=== PATIENT | male | born 1980 | race Caucasian/White ===

== ENCOUNTER 2016-06-27 05:09 | Emergency (ER) | payer MEDICAID, OTHER ==
[~2016-06-27] VITALS: Ht 172.7 cm; Wt 136.4 kg
[~2016-06-27 05:09] MED LIST: ARIP15TA3 PO; GLIP5 PO; LISI-660 PO; METF500T4 PO; METO50 PO; OMEP20 PO; SIMV-259 PO
[2016-06-27 05:37] LABS: BASOPHILS % (AUTO) 0.5 % (0.0-2.0); EOSINOPHILS % (AUTO) 2.6 % (1.0-6.0); HEMATOCRIT 48.1 % (41-53); HEMOGLOBIN 15.7 g/dL (13.5-17.5); LYMPHOCYTES # (AUTO) 3.2 K/uL (1.0-4.8); LYMPHOCYTES % (AUTO) 19.5 % (22.0-44.0); MEAN CORPUSCULAR HEMOGLOBIN 30.4 pg (26.0-34.0); MEAN CORPUSCULAR HGB CONC 32.6 G/dL (31.0-37.0); MEAN CORPUSCULAR VOLUME 93 fL (80-100); MONOCYTES # (AUTO) 0.7 K/uL (0.1-1.0); MONOCYTES % (AUTO) 4.5 % (2.0-9.0); NEUTROPHILS # (AUTO) 11.9 K/uL (1.8-7.7); NEUTROPHILS % (AUTO) 72.9 % (40.0-70.0); PLATELET COUNT (AUTO) 237 K/uL (150-450); RED BLOOD CELL COUNT(AUTO) 5.15 MIL/uL (4.50-5.90); RED CELL DISTRIBUTION WIDTH 14.3 % (11.5-14.5); WHITE BLOOD COUNT (AUTO) 16.3 K/uL (4.5-11.0)
[2016-06-27 05:49] LABS: ANION GAP 8 mmol/L (8-16); CARBON DIOXIDE 31 mmol/L (22-29); CHLORIDE 101 mmol/L (98-107); CREATININE 0.82 mg/dL (0.60-1.30); GLOMERULAR FILTR. RATE CALC > 60 mL/min (>60); POTASSIUM 4.2 mmol/L (3.5-5.1); SODIUM SERUM 140 mmol/L (136-145); UREA NITROGEN, BLOOD 9 mg/dL (7-18)
[2016-06-27 05:55] LABS: ALANINE AMINOTRANSFERASE 35 U/L (12-78); ALBUMIN 3.6 g/dL (3.4-5.0); ASPARTATE AMINOTRANSFERASE 21 U/L (15-37); BILIRUBIN,TOTAL 0.7 mg/dL (0.1-1.0); TOTAL PROTEIN, SERUM 8.3 g/dL (6.4-8.2)
[2016-06-27] MEDS ORDERED: LORazepam 2 MG TABLET PO ONE (08:45)
[2016-06-27] MEDS ORDERED: HALOPERIDOL 5 MG TABLET PO ONE (08:45)
[2016-06-27 09:43] VITALS: BP 137/92
== END 2016-06-27 09:43 | disposition home or self-care (01) ==
LOC: EMS 05:11
DX: F20.0 Paranoid schizophrenia (principal); E11.9 Type 2 diabetes mellitus without complications; E78.00 Pure hypercholesterolemia, unspecified; I10 Essential (primary) hypertension; F17.210 Nicotine dependence, cigarettes, uncomplicated; Z88.0 Allergy status to penicillin
CPT/HCPCS: 82962; 99284

== ENCOUNTER 2017-08-05 08:13 | Inpatient (IN) | payer MEDICAID, OTHER ==
[~2017-08-05] VITALS: Ht 177.8 cm; Wt 133.5 kg
[~2017-08-05 08:13] MED LIST changes: +ARIP15TA2 PO; -ARIP15TA3 PO; -METF500T4 PO; +METF500T6 PO
[2017-08-05 08:37] LABS: GLUCOSE,POINT OF CARE 128 MG/DL (70-110)
[2017-08-05 09:03] LABS: EOSINOPHILS % (AUTO) 5.6 % (1.0-6.0); HEMATOCRIT 44.2 % (41-53); HEMOGLOBIN 15.5 g/dL (13.5-17.5); LYMPHOCYTES # (AUTO) 2.8 K/uL (1.0-4.8); LYMPHOCYTES % (AUTO) 26.7 % (22.0-44.0); MEAN CORPUSCULAR HEMOGLOBIN 32.5 pg (26.0-34.0); MEAN CORPUSCULAR VOLUME 93 fL (80-100); MONOCYTES # (AUTO) 0.6 K/uL (0.1-1.0); MONOCYTES % (AUTO) 5.7 % (2.0-9.0); NEUTROPHILS # (AUTO) 6.4 K/uL (1.8-7.7); PLATELET COUNT (AUTO) 203 K/uL (150-450); RED BLOOD CELL COUNT(AUTO) 4.75 MIL/uL (4.50-5.90); RED CELL DISTRIBUTION WIDTH 14.1 % (11.5-14.5)
[2017-08-05 09:04] LABS: AMPHET/METH SCREEN,URINE NEGATIVE (NEGATIVE); BARBITURATE SCREEN, URINE NEGATIVE (NEGATIVE); BENZODIAZEPINES SCREEN,URINE NEGATIVE (NEGATIVE); CANNABINOID SCREEN,URINE NEGATIVE (NEGATIVE); COCAINE SCREEN,URINE NEGATIVE (NEGATIVE); METHADONE SCREEN, URINE NEGATIVE (NEGATIVE); OPIATE SCREEN,URINE NEGATIVE (NEGATIVE)
[2017-08-05 09:10] LABS: PHENCYCLIDINE SCREEN,URINE NEGATIVE (NEGATIVE)
[2017-08-05 09:29] LABS: ANION GAP 6 mmol/L (8-16); CALCIUM, TOTAL 8.7 mg/dL (8.8-10.5); CARBON DIOXIDE 28 mmol/L (22-29); CHLORIDE 102 mmol/L (98-107); CREATININE 0.61 mg/dL (0.60-1.30); GLOMERULAR FILTR. RATE CALC > 60 mL/min (>60); GLUCOSE,RANDOM 120 mg/dL (70-110); POTASSIUM 4.2 mmol/L (3.5-5.1); SODIUM SERUM 136 mmol/L (136-145); UREA NITROGEN, BLOOD 7 mg/dL (7-18)
[2017-08-05] MEDS ORDERED: HALOPERIDOL 5 MG TABLET PO PRN (09:30)
[2017-08-05 09:34] LABS: ALANINE AMINOTRANSFERASE 28 U/L (12-78); ALBUMIN 3.2 g/dL (3.4-5.0); ALKALINE PHOSPHATASE 97 U/L (46-116); ASPARTATE AMINOTRANSFERASE 21 U/L (15-37); BILIRUBIN,TOTAL 0.2 mg/dL (0.1-1.0); TOTAL PROTEIN, SERUM 7.5 g/dL (6.4-8.2)
[2017-08-05 10:11] LABS: CHOLESTEROL 153 mg/dL (131-200); FREE T4 (FREE THYROXINE) 0.78 ng/dL (0.76-1.46); HDL CHOLESTEROL 38 mg/dL (40-60); LDL CHOL (CALC.) 93 mg/dL (0-130); THYROID STIMULATING HORMONE 2.63 uIU/mL (0.36-3.74); TRIGLYCERIDES 112 mg/dL (15-150)
[2017-08-05 16:29] VITALS: BP 160/96
[2017-08-05] MEDS ORDERED: PNEUMOCOCCAL VACCINE POLYVALENT 0.5 ML VIAL [PPSV23] IM ONE (16:45)
[2017-08-05] MEDS: LORazepam 2 MG TABLET PO PRN (16:58)
[2017-08-05] MEDS ORDERED: GLUCAGON,HUMAN RECOMBINANT 1 MG VIAL IM PRN (18:00)
[2017-08-05] MEDS: ARIPiprazole 15 MG TABLET PO SCH (20:48)
[2017-08-05] MEDS: SIMVASTATIN 10 MG TABLET PO SCH (20:48)
[2017-08-05] MEDS: ZOLPIDEM TARTRATE 10 MG TABLET PO PRN (21:05)
[2017-08-05 23:57] LABS: GLUCOMETER DEV NAME(LOC) BV2S 2; GLUCOSE,POINT OF CARE 111 MG/DL (70-110)
[2017-08-06 05:27] VITALS: BP 120/76
[2017-08-06] MEDS: GlipiZIDE 5 MG TABLET PO SCH (06:57)
[2017-08-06] MEDS: INSULIN LISPRO 100 UNITS/ML SQ PRN ×2 (07:06→16:59)
[2017-08-06] MEDS: MetFORMIN HCL 500 MG TABLET PO SCH ×2 (07:11→16:57)
[2017-08-06 07:53] LABS: GLUCOMETER DEV NAME(LOC) BV2S 2; GLUCOSE,POINT OF CARE 143 MG/DL (70-110)
[2017-08-06] MEDS: LISINOPRIL 5 MG TABLET PO SCH (08:15)
[2017-08-06] MEDS: METOPROLOL TARTRATE 25 MG TABLET PO SCH (08:15)
[2017-08-06] MEDS: OMEPRAZOLE 20 MG CAPSULE PO SCH (08:15)
[2017-08-06 08:20] VITALS: BP 103/77
[2017-08-06 10:57] LABS: GLUCOMETER DEV NAME(LOC) BV2S 2; GLUCOSE,POINT OF CARE 115 MG/DL (70-110)
[2017-08-06 16:36] VITALS: BP 115/65
[2017-08-06 16:47] LABS: GLUCOMETER DEV NAME(LOC) BV2S 2; GLUCOSE,POINT OF CARE 143 MG/DL (70-110)
[2017-08-06] MEDS: SIMVASTATIN 10 MG TABLET PO SCH (20:04)
[2017-08-06] MEDS: ARIPiprazole 15 MG TABLET PO SCH (20:04)
[2017-08-07 04:00] VITALS: BP 122/92
[2017-08-07 06:13] LABS: GLUCOMETER DEV NAME(LOC) BV2S 2; GLUCOSE,POINT OF CARE 136 MG/DL (70-110)
[2017-08-07] MEDS: MetFORMIN HCL 500 MG TABLET PO SCH ×2 (06:48→17:05)
[2017-08-07] MEDS: GlipiZIDE 5 MG TABLET PO SCH (06:48)
[2017-08-07] MEDS: OMEPRAZOLE 20 MG CAPSULE PO SCH (08:56)
[2017-08-07] MEDS: METOPROLOL TARTRATE 25 MG TABLET PO SCH (08:56)
[2017-08-07] MEDS: LISINOPRIL 5 MG TABLET PO SCH (08:56)
[2017-08-07 09:41] VITALS: BP 111/70
[2017-08-07] MEDS: LORazepam 2 MG TABLET PO PRN (16:08)
[2017-08-07 16:14] VITALS: BP 118/87
[2017-08-07 16:28] LABS: GLUCOMETER DEV NAME(LOC) BV2S 2; GLUCOSE,POINT OF CARE 125 MG/DL (70-110)
[2017-08-07] MEDS: ARIPiprazole 15 MG TABLET PO SCH (21:02)
[2017-08-07] MEDS: SIMVASTATIN 10 MG TABLET PO SCH (21:02)
[2017-08-08 02:43] VITALS: BP 118/80
[2017-08-08] MEDS: LORazepam 2 MG TABLET PO PRN (02:43)
[2017-08-08] MEDS: ZOLPIDEM TARTRATE 10 MG TABLET PO PRN (02:43)
[2017-08-08 06:12] LABS: GLUCOMETER DEV NAME(LOC) BV2S 2; GLUCOSE,POINT OF CARE 130 MG/DL (70-110)
[2017-08-08] MEDS: MetFORMIN HCL 500 MG TABLET PO SCH ×2 (06:40→17:01)
[2017-08-08] MEDS: GlipiZIDE 5 MG TABLET PO SCH (06:40)
[2017-08-08 08:16] VITALS: BP 121/69
[2017-08-08] MEDS: LISINOPRIL 5 MG TABLET PO SCH (09:00)
[2017-08-08] MEDS: METOPROLOL TARTRATE 25 MG TABLET PO SCH (09:00)
[2017-08-08] MEDS: OMEPRAZOLE 20 MG CAPSULE PO SCH (09:00)
[2017-08-08 16:31] VITALS: BP 121/65
[2017-08-08] MEDS ORDERED: LISI-660 PO (16:54)
[2017-08-08] MEDS ORDERED: OMEP20 PO (16:54)
[2017-08-08] MEDS ORDERED: GLIP5 PO (16:54)
[2017-08-08] MEDS ORDERED: METO50 PO (16:54)
[2017-08-08] MEDS ORDERED: SIMV-259 PO (16:54)
[2017-08-08 17:07] LABS: GLUCOMETER DEV NAME(LOC) BV2S 2; GLUCOSE,POINT OF CARE 120 MG/DL (70-110)
== END 2017-08-08 17:45 | disposition home or self-care (01) | DRG 750 ==
LOC: EMS 08:15 → B2S 14:38
PROVIDERS: ADMIT Psychiatry & Neurology Psychiatry; ATTEND Psychiatry & Neurology Psychiatry
PROC: 3E0234Z Introduction of Serum, Toxoid and Vaccine into Muscle, Percutaneous Approach (ICD-10-PCS; principal; 2017-08-05)
DX: F25.9 Schizoaffective disorder, unspecified (principal); E11.9 Type 2 diabetes mellitus without complications; R45.851 Suicidal ideations; I10 Essential (primary) hypertension; F41.9 Anxiety disorder, unspecified; E78.00 Pure hypercholesterolemia, unspecified; E78.5 Hyperlipidemia, unspecified; F17.200 Nicotine dependence, unspecified, uncomplicated; Z23 Encounter for immunization
CPT/HCPCS: 83036; 84439; 84443; 90471; 99285; G0480

== ENCOUNTER 2017-08-30 09:49 | Inpatient (IN) | payer MEDICAID, OTHER ==
[~2017-08-30] VITALS: Ht 190.5 cm; Wt 134.0 kg
[2017-08-30 10:18] LABS: GLUCOSE,POINT OF CARE 174 MG/DL (70-110)
[2017-08-30] MEDS ORDERED: LORazepam 2 MG TABLET PO ONE (10:30)
[2017-08-30 10:44] LABS: EOSINOPHILS % (AUTO) 2.6 % (1.0-6.0); HEMOGLOBIN 15.6 g/dL (13.5-17.5); LYMPHOCYTES # (AUTO) 2.7 K/uL (1.0-4.8); MEAN CORPUSCULAR HGB CONC 34.7 G/dL (31.0-37.0); MEAN CORPUSCULAR VOLUME 92 fL (80-100); MONOCYTES # (AUTO) 0.8 K/uL (0.1-1.0); MONOCYTES % (AUTO) 5.5 % (2.0-9.0); NEUTROPHILS # (AUTO) 10.8 K/uL (1.8-7.7); NEUTROPHILS % (AUTO) 72.9 % (40.0-70.0); PLATELET COUNT (AUTO) 214 K/uL (150-450); RED BLOOD CELL COUNT(AUTO) 4.89 MIL/uL (4.50-5.90)
[2017-08-30 10:55] LABS: ANION GAP 7 mmol/L (8-16); CALCIUM, TOTAL 8.6 mg/dL (8.8-10.5); CARBON DIOXIDE 27 mmol/L (22-29); CHLORIDE 100 mmol/L (98-107); CREATININE 0.82 mg/dL (0.60-1.30); GLOMERULAR FILTR. RATE CALC > 60 mL/min (>60); GLUCOSE,RANDOM 183 mg/dL (70-110); POTASSIUM 3.9 mmol/L (3.5-5.1); SODIUM SERUM 134 mmol/L (136-145); UREA NITROGEN, BLOOD 12 mg/dL (7-18)
[2017-08-30 11:01] LABS: ALANINE AMINOTRANSFERASE 34 U/L (12-78); ALBUMIN 3.3 g/dL (3.4-5.0); ALKALINE PHOSPHATASE 119 U/L (46-116); ASPARTATE AMINOTRANSFERASE 25 U/L (15-37); BILIRUBIN,TOTAL 0.6 mg/dL (0.1-1.0)
[2017-08-30] MEDS ORDERED: LISINOPRIL 10 MG TABLET PO ONE (17:30)
[2017-08-30] MEDS ORDERED: METOPROLOL TARTRATE 50 MG TABLET PO ONE (17:30)
[2017-08-30] MEDS: HALOPERIDOL 5 MG TABLET PO PRN (18:20)
[2017-08-30] MEDS: LORazepam 2 MG TABLET PO PRN (18:20)
[2017-08-30] MEDS ORDERED: LORazepam 2 MG/ML VIAL IM ONE (20:45)
[2017-08-30] MEDS ORDERED: HALOPERIDOL LACTATE 5 MG/ML VIAL IM ONE (20:45)
[2017-08-30] MEDS ORDERED: DiphenhydrAMINE HCL 50 MG/ML VIAL IM ONE (20:45)
[2017-08-31 08:29] VITALS: BP 127/68
[2017-08-31 09:03] LABS: GLUCOMETER DEV NAME(LOC) BV3N5; GLUCOSE,POINT OF CARE 185 MG/DL (70-110)
[2017-08-31] MEDS: METOPROLOL TARTRATE 50 MG TABLET PO SCH (09:30)
[2017-08-31] MEDS: OMEPRAZOLE 20 MG CAPSULE PO SCH (10:02)
[2017-08-31] MEDS: LISINOPRIL 5 MG TABLET PO SCH (10:02)
[2017-08-31] MEDS ORDERED: -PHARMACY VACCINE NOTE- MISC ONE (10:45)
[2017-08-31 16:00] VITALS: BP 125/78
[2017-08-31 16:09] VITALS: BP 120/64
[2017-08-31] MEDS: MetFORMIN HCL 500 MG TABLET PO SCH (17:08)
[2017-08-31] MEDS: HALOPERIDOL 5 MG TABLET PO PRN (17:08)
[2017-08-31] MEDS: LORazepam 2 MG TABLET PO PRN (17:08)
[2017-08-31] MEDS ORDERED: ACETAMINOPHEN 325 MG TABLET PO PRN ×2 (17:15→20:30)
[2017-08-31 17:24] LABS: GLUCOMETER DEV NAME(LOC) BV3N5; GLUCOSE,POINT OF CARE 149 MG/DL (70-110)
[2017-08-31] MEDS: ZOLPIDEM TARTRATE 10 MG TABLET PO PRN (21:02)
[2017-08-31] MEDS: SIMVASTATIN 10 MG TABLET PO SCH (21:02)
[2017-09-01] MEDS: IBUPROFEN 400 MG TABLET PO PRN ×3 (05:31→17:29)
[2017-09-01 05:33] VITALS: BP 128/86
[2017-09-01] MEDS: MetFORMIN HCL 500 MG TABLET PO SCH ×2 (06:47→16:41)
[2017-09-01] MEDS: GlipiZIDE 5 MG TABLET PO SCH (06:47)
[2017-09-01 06:49] LABS: GLUCOMETER DEV NAME(LOC) BV3N5; GLUCOSE,POINT OF CARE 188 MG/DL (70-110)
[2017-09-01 08:25] VITALS: BP 130/58
[2017-09-01 09:08] LABS: AMPHET/METH SCREEN,URINE NEGATIVE (NEGATIVE); BARBITURATE SCREEN, URINE NEGATIVE (NEGATIVE); BENZODIAZEPINES SCREEN,URINE NEGATIVE (NEGATIVE); CANNABINOID SCREEN,URINE POSITIVE (NEGATIVE); COCAINE SCREEN,URINE NEGATIVE (NEGATIVE); METHADONE SCREEN, URINE NEGATIVE (NEGATIVE); OPIATE SCREEN,URINE NEGATIVE (NEGATIVE)
[2017-09-01 09:10] LABS: CHOL/HDL RATIO 4.3 (4.2-7.3); FREE T4 (FREE THYROXINE) 1.06 ng/dL (0.76-1.46); THYROID STIMULATING HORMONE 2.07 uIU/mL (0.36-3.74)
[2017-09-01 09:13] LABS: PHENCYCLIDINE SCREEN,URINE NEGATIVE (NEGATIVE)
[2017-09-01] MEDS: HALOPERIDOL 5 MG TABLET PO PRN (09:45)
[2017-09-01] MEDS: ARIPiprazole 15 MG TABLET PO SCH (09:45)
[2017-09-01 09:46] LABS: APPEARANCE,URINE TURBID (CLEAR); BILIRUBIN,URINE NEGATIVE (NEGATIVE); GLUCOSE, URINE (UA) NEGATIVE (NEGATIVE); KETONES,URINE NEGATIVE (NEGATIVE); LEUKOCYTE ESTERASE ,URINE NEGATIVE (NEGATIVE); NITRATE,URINE NEGATIVE (NEGATIVE); OCCULT BLOOD,URINE NEGATIVE (NEGATIVE); PH,URINE 5.5 (5.0-8.0); PROTEIN,URINE NEGATIVE (NEGATIVE); UROBILINOGEN,URINE 0.2 mg/dL (<=1.0)
[2017-09-01] MEDS: OMEPRAZOLE 20 MG CAPSULE PO SCH (09:46)
[2017-09-01] MEDS: LISINOPRIL 5 MG TABLET PO SCH (09:46)
[2017-09-01] MEDS: METOPROLOL TARTRATE 50 MG TABLET PO SCH (09:46)
[2017-09-01] MEDS: NICOTINE 14 MG/24 HOUR PATCH TD SCH (09:46)
[2017-09-01 10:14] LABS: AMORPHOUS SEDIMENT,UR Many /LPF (None Seen); BACTERIA,URINE Moderate /HPF (None Seen); CALCIUM OXALATE CRYSTALS,UR Rare /LPF (None Seen); RBC,URINE None Seen /HPF (0-2); WBC,URINE None Seen /HPF (0-5)
[2017-09-01] MEDS ORDERED: IBUPROFEN 800 MG TABLET PO PRN (11:30)
[2017-09-01 16:00] VITALS: BP 123/71
[2017-09-01 16:38] LABS: GLUCOMETER DEV NAME(LOC) BV3N5; GLUCOSE,POINT OF CARE 172 MG/DL (70-110)
[2017-09-01] MEDS: SIMVASTATIN 10 MG TABLET PO SCH (20:29)
[2017-09-01] MEDS: ZOLPIDEM TARTRATE 10 MG TABLET PO PRN (21:35)
[2017-09-01] MEDS: LORazepam 2 MG TABLET PO PRN (21:35)
[2017-09-02 00:16] VITALS: BP 141/89
[2017-09-02] MEDS: GlipiZIDE 5 MG TABLET PO SCH (06:36)
[2017-09-02] MEDS: MetFORMIN HCL 500 MG TABLET PO SCH ×2 (06:44→17:07)
[2017-09-02 06:54] LABS: GLUCOMETER DEV NAME(LOC) BV3N5; GLUCOSE,POINT OF CARE 154 MG/DL (70-110)
[2017-09-02 08:07] VITALS: BP 138/83
[2017-09-02] MEDS: OMEPRAZOLE 20 MG CAPSULE PO SCH (08:53)
[2017-09-02] MEDS: METOPROLOL TARTRATE 50 MG TABLET PO SCH (08:53)
[2017-09-02] MEDS: ARIPiprazole 15 MG TABLET PO SCH (08:53)
[2017-09-02] MEDS: LISINOPRIL 5 MG TABLET PO SCH (08:54)
[2017-09-02] MEDS: NICOTINE 14 MG/24 HOUR PATCH TD SCH (09:00)
[2017-09-02] MEDS: DOCUSATE SODIUM 100 MG CAPSULE PO PRN ×2 (12:04→17:07)
[2017-09-02 14:21] VITALS: BP 130/74
[2017-09-02] MEDS: IBUPROFEN 400 MG TABLET PO PRN (14:24)
[2017-09-02 15:25] VITALS: BP 119/73
[2017-09-02 16:00] VITALS: BP 119/73
[2017-09-02 16:38] LABS: GLUCOMETER DEV NAME(LOC) BV3N5; GLUCOSE,POINT OF CARE 123 MG/DL (70-110)
[2017-09-02] MEDS: LORazepam 2 MG TABLET PO PRN (17:08)
[2017-09-02] MEDS ORDERED: ARIP15TA2 PO (18:18)
== END 2017-09-02 19:15 | disposition home or self-care (01) | DRG 750 ==
LOC: EMS 09:51 → B3A 08-31 06:04
PROVIDERS: ADMIT Psychiatry & Neurology Psychiatry; ATTEND Psychiatry & Neurology Psychiatry
DX: F25.9 Schizoaffective disorder, unspecified (principal); R45.851 Suicidal ideations; E11.9 Type 2 diabetes mellitus without complications; Z78.1 Physical restraint status; I10 Essential (primary) hypertension; E78.5 Hyperlipidemia, unspecified; D72.829 Elevated white blood cell count, unspecified; F41.9 Anxiety disorder, unspecified; E78.00 Pure hypercholesterolemia, unspecified; K21.9 Gastro-esophageal reflux disease without esophagitis; K59.00 Constipation, unspecified; F17.210 Nicotine dependence, cigarettes, uncomplicated; Z88.0 Allergy status to penicillin; Z79.899 Other long term (current) drug therapy; Z79.84 Long term (current) use of oral hypoglycemic drugs; Z71.6 Tobacco abuse counseling; Z71.51 Drug abuse counseling and surveillance of drug abuser
CPT/HCPCS: 71110; 80307; 83036; 84439; 84443; 87081; 87086; 99291; G0480; J1200; J1630; J2060

== ENCOUNTER 2018-11-13 14:57 | Inpatient (IN) | payer MEDICAID, OTHER ==
[~2018-11-13] VITALS: Ht 177.8 cm; Wt 131.5 kg
[~2018-11-13 14:57] MED LIST changes: +METF-960 PO; -METF500T6 PO
[2018-11-13] MEDS ORDERED: DiphenhydrAMINE HCL 50 MG/ML VIAL ONE (15:38)
[2018-11-13] MEDS ORDERED: HALOPERIDOL LACTATE 5 MG/ML VIAL ONE (15:38)
[2018-11-13] MEDS ORDERED: LORazepam 2 MG/ML VIAL ONE (15:38)
[2018-11-13 15:46] LABS: BASOPHILS % (AUTO) 0.8 % (0.0-2.0); EOSINOPHILS % (AUTO) 1.7 % (1.0-6.0); HEMATOCRIT 46.8 % (41-53); HEMOGLOBIN 15.4 g/dL (13.5-17.5); LYMPHOCYTES # (AUTO) 3.9 K/uL (1.0-4.8); LYMPHOCYTES % (AUTO) 22.2 % (22.0-44.0); MEAN CORPUSCULAR HEMOGLOBIN 31.3 pg (26.0-34.0); MEAN CORPUSCULAR HGB CONC 32.9 G/dL (31.0-37.0); MEAN CORPUSCULAR VOLUME 95 fL (80-100); MONOCYTES # (AUTO) 1.2 K/uL (0.1-1.0); MONOCYTES % (AUTO) 6.6 % (2.0-9.0); NEUTROPHILS # (AUTO) 12.1 K/uL (1.8-7.7); NEUTROPHILS % (AUTO) 68.7 % (40.0-70.0); PLATELET COUNT (AUTO) 213 K/uL (150-450); RED BLOOD CELL COUNT(AUTO) 4.92 MIL/uL (4.50-5.90); RED CELL DISTRIBUTION WIDTH 14.4 % (11.5-14.5)
[2018-11-13 15:56] LABS: SALICYLATE 2.7 mg/dL (2.8-20.0)
[2018-11-13 15:57] LABS: ANION GAP 9 mmol/L (8-16); CALCIUM, TOTAL 9.3 mg/dL (8.8-10.5); CARBON DIOXIDE 25 mmol/L (22-29); CHLORIDE 98 mmol/L (98-107); CREATININE 0.82 mg/dL (0.60-1.30); GLOMERULAR FILTR. RATE CALC > 60 mL/min (>60); GLUCOSE,RANDOM 155 mg/dL (70-110); SODIUM SERUM 132 mmol/L (136-145); UREA NITROGEN, BLOOD 6 mg/dL (7-18)
[2018-11-13 15:58] LABS: APPEARANCE,URINE CLEAR (CLEAR); BILIRUBIN,URINE NEGATIVE (NEGATIVE); GLUCOSE, URINE (UA) NEGATIVE (NEGATIVE); KETONES,URINE NEGATIVE (NEGATIVE); LEUKOCYTE ESTERASE ,URINE NEGATIVE (NEGATIVE); NITRATE,URINE NEGATIVE (NEGATIVE); OCCULT BLOOD,URINE NEGATIVE (NEGATIVE); PH,URINE 6.5 (5.0-8.0); PROTEIN,URINE NEGATIVE (NEGATIVE); UROBILINOGEN,URINE 0.2 mg/dL (<=1.0)
[2018-11-13 16:02] LABS: AMPHET/METH SCREEN,URINE NEGATIVE (NEGATIVE); BARBITURATE SCREEN, URINE NEGATIVE (NEGATIVE); BENZODIAZEPINES SCREEN,URINE NEGATIVE (NEGATIVE); CANNABINOID SCREEN,URINE NEGATIVE (NEGATIVE); COCAINE SCREEN,URINE NEGATIVE (NEGATIVE); METHADONE SCREEN, URINE NEGATIVE (NEGATIVE); OPIATE SCREEN,URINE NEGATIVE (NEGATIVE)
[2018-11-13 16:03] LABS: ALANINE AMINOTRANSFERASE 23 U/L (12-78); ALBUMIN 3.9 g/dL (3.4-5.0); ALKALINE PHOSPHATASE 116 U/L (46-116); ASPARTATE AMINOTRANSFERASE 27 U/L (15-37); BILIRUBIN,TOTAL 0.5 mg/dL (0.1-1.0); TOTAL PROTEIN, SERUM 8.3 g/dL (6.4-8.2)
[2018-11-13 16:08] LABS: PHENCYCLIDINE SCREEN,URINE NEGATIVE (NEGATIVE)
[2018-11-13 16:18] LABS: BACTERIA,URINE Rare /HPF (None Seen); RBC,URINE 0-2 /HPF (0-2); SQUAMOUS EPITHELIAL CELL,UR Few /LPF (None Seen); WBC,URINE 0-2 /HPF (0-5)
[2018-11-13 16:29] LABS: ACETAMINOPHEN < 2 mcg/mL (10-30)
[2018-11-13] MEDS ORDERED: LORazepam 2 MG/ML VIAL IM ONE (16:30)
[2018-11-13] MEDS ORDERED: HALOPERIDOL LACTATE 5 MG/ML VIAL IM ONE (16:30)
[2018-11-13] MEDS ORDERED: DiphenhydrAMINE HCL 50 MG/ML VIAL IM ONE (16:30)
[2018-11-13] MEDS ORDERED: IBUPROFEN 400 MG TABLET PO PRN (17:15)
[2018-11-13] MEDS ORDERED: HALOPERIDOL 5 MG TABLET PO PRN (17:15)
[2018-11-13] MEDS ORDERED: ACETAMINOPHEN 325 MG TABLET PO PRN (17:15)
[2018-11-13] MEDS ORDERED: LORazepam 2 MG TABLET PO PRN (17:15)
[2018-11-13] MEDS ORDERED: ZOLPIDEM TARTRATE 10 MG TABLET PO PRN (17:15)
[2018-11-14 02:24] VITALS: BP 150/81
[2018-11-14 03:15] LABS: GLUCOSE,POINT OF CARE 125 MG/DL (70-110)
[2018-11-14 06:51] LABS: HEMOGLOBIN A1C 6.7 % (4.5-6.2)
[2018-11-14 06:56] LABS: BASOPHILS % (AUTO) 1.1 % (0.0-2.0); EOSINOPHILS % (AUTO) 5.7 % (1.0-6.0); HEMATOCRIT 44.9 % (41-53); HEMOGLOBIN 14.8 g/dL (13.5-17.5); LYMPHOCYTES # (AUTO) 2.6 K/uL (1.0-4.8); LYMPHOCYTES % (AUTO) 26.9 % (22.0-44.0); MEAN CORPUSCULAR HEMOGLOBIN 31.5 pg (26.0-34.0); MEAN CORPUSCULAR HGB CONC 32.8 G/dL (31.0-37.0); MEAN CORPUSCULAR VOLUME 96 fL (80-100); MONOCYTES # (AUTO) 0.6 K/uL (0.1-1.0); MONOCYTES % (AUTO) 6.6 % (2.0-9.0); NEUTROPHILS # (AUTO) 5.7 K/uL (1.8-7.7); NEUTROPHILS % (AUTO) 59.7 % (40.0-70.0); PLATELET COUNT (AUTO) 169 K/uL (150-450); RED BLOOD CELL COUNT(AUTO) 4.69 MIL/uL (4.50-5.90); RED CELL DISTRIBUTION WIDTH 14.2 % (11.5-14.5)
[2018-11-14] MEDS ORDERED: GuaiFENesin/D-METHORPHAN [SUGAR-FREE] 200-20MG/10 ML SYRUP UDCUP PO PRN (07:00)
[2018-11-14] MEDS ORDERED: ONDANSETRON HCL 4 MG TABLET PO PRN (07:00)
[2018-11-14] MEDS ORDERED: DOCUSATE SODIUM 100 MG CAPSULE PO PRN (07:00)
[2018-11-14] MEDS ORDERED: MAG HYDROX/AL HYDROX/SIMETH ES 30 ML SUSPENSION UDCUP PO PRN (07:00)
[2018-11-14] MEDS ORDERED: NICOTINE 14 MG/24 HOUR PATCH TD PRN (07:00)
[2018-11-14] MEDS ORDERED: PETROLATUM,WHITE 28 GM JELLY TP PRN (07:00)
[2018-11-14] MEDS ORDERED: MAGNESIUM HYDROXIDE SUSPENSION 30 ML UDCUP PO PRN (07:00)
[2018-11-14] MEDS ORDERED: CloNIDine HCL 0.1 MG TABLET PO PRN (07:00)
[2018-11-14] MEDS ORDERED: ALBUTEROL SULFATE HFA 90 MCG/PUFF 8 GM INHALER IH PRN (07:00)
[2018-11-14] MEDS ORDERED: LOPERAMIDE HCL 2 MG CAPSULE PO PRN (07:00)
[2018-11-14 07:12] LABS: ALANINE AMINOTRANSFERASE 23 U/L (12-78); ALBUMIN 3.4 g/dL (3.4-5.0); ALKALINE PHOSPHATASE 107 U/L (46-116); ANION GAP 8 mmol/L (8-16); ASPARTATE AMINOTRANSFERASE 24 U/L (15-37); BILIRUBIN,TOTAL 0.5 mg/dL (0.1-1.0); CARBON DIOXIDE 29 mmol/L (22-29); CHLORIDE 103 mmol/L (98-107); CHOL/HDL RATIO 4.7 (4.2-7.3); CHOLESTEROL 156 mg/dL (131-200); CREATININE 0.76 mg/dL (0.60-1.30); GLOMERULAR FILTR. RATE CALC > 60 mL/min (>60); GLUCOSE,RANDOM 144 mg/dL (70-110); HDL CHOLESTEROL 33 mg/dL (40-60); LDL CHOL (CALC.) 106 mg/dL (0-130); POTASSIUM 4.5 mmol/L (3.5-5.1); SODIUM SERUM 140 mmol/L (136-145); THYROID STIMULATING HORMONE 1.01 uIU/mL (0.36-3.74); TOTAL PROTEIN, SERUM 6.9 g/dL (6.4-8.2); TRIGLYCERIDES 87 mg/dL (15-150)
[2018-11-14 07:17] LABS: UREA NITROGEN, BLOOD 7 mg/dL (7-18)
[2018-11-14 09:17] VITALS: BP 131/87
[2018-11-14] MEDS: OMEPRAZOLE 20 MG CAPSULE PO SCH (09:19)
[2018-11-14] MEDS: LISINOPRIL 5 MG TABLET PO SCH (09:19)
[2018-11-14] MEDS: METOPROLOL TARTRATE 50 MG TABLET PO SCH (09:19)
[2018-11-14] MEDS: ARIPiprazole 15 MG TABLET PO SCH (14:21)
[2018-11-14] MEDS: MetFORMIN HCL 500 MG TABLET PO SCH (16:33)
[2018-11-14 16:58] VITALS: BP 110/61
[2018-11-14] MEDS: SIMVASTATIN 10 MG TABLET PO SCH (20:38)
[2018-11-15 06:22] LABS: EOSINOPHILS % (AUTO) 4.1 % (1.0-6.0); HEMATOCRIT 46.5 % (41-53); HEMOGLOBIN 15.1 g/dL (13.5-17.5); LYMPHOCYTES # (AUTO) 2.9 K/uL (1.0-4.8); LYMPHOCYTES % (AUTO) 25.5 % (22.0-44.0); MEAN CORPUSCULAR HEMOGLOBIN 31.2 pg (26.0-34.0); MEAN CORPUSCULAR HGB CONC 32.4 G/dL (31.0-37.0); MEAN CORPUSCULAR VOLUME 96 fL (80-100); MONOCYTES # (AUTO) 0.7 K/uL (0.1-1.0); MONOCYTES % (AUTO) 5.7 % (2.0-9.0); NEUTROPHILS # (AUTO) 7.4 K/uL (1.8-7.7); NEUTROPHILS % (AUTO) 63.7 % (40.0-70.0); PLATELET COUNT (AUTO) 170 K/uL (150-450); RED BLOOD CELL COUNT(AUTO) 4.85 MIL/uL (4.50-5.90)
[2018-11-15 06:30] LABS: HEMOGLOBIN A1C 6.7 % (4.5-6.2)
[2018-11-15 06:47] LABS: ALANINE AMINOTRANSFERASE 24 U/L (12-78); ALBUMIN 3.4 g/dL (3.4-5.0); ALKALINE PHOSPHATASE 107 U/L (46-116); ANION GAP 9 mmol/L (8-16); ASPARTATE AMINOTRANSFERASE 17 U/L (15-37); BILIRUBIN,TOTAL 0.4 mg/dL (0.1-1.0); CALCIUM, TOTAL 9.1 mg/dL (8.8-10.5); CARBON DIOXIDE 30 mmol/L (22-29); CHLORIDE 103 mmol/L (98-107); CHOLESTEROL 156 mg/dL (131-200); CREATININE 0.76 mg/dL (0.60-1.30); GLOMERULAR FILTR. RATE CALC > 60 mL/min (>60); GLUCOSE,RANDOM 139 mg/dL (70-110); HDL CHOLESTEROL 31 mg/dL (40-60); LDL CHOL (CALC.) 102 mg/dL (0-130); POTASSIUM 4.1 mmol/L (3.5-5.1); SODIUM SERUM 142 mmol/L (136-145); TOTAL PROTEIN, SERUM 7.1 g/dL (6.4-8.2); TRIGLYCERIDES 116 mg/dL (15-150); UREA NITROGEN, BLOOD 9 mg/dL (7-18)
[2018-11-15] MEDS: GlipiZIDE 5 MG TABLET PO SCH (07:10)
[2018-11-15] MEDS: MetFORMIN HCL 500 MG TABLET PO SCH ×2 (07:10→16:58)
[2018-11-15] MEDS: ARIPiprazole 15 MG TABLET PO SCH (09:04)
[2018-11-15] MEDS: OMEPRAZOLE 20 MG CAPSULE PO SCH (09:04)
[2018-11-15] MEDS: METOPROLOL TARTRATE 50 MG TABLET PO SCH (09:04)
[2018-11-15] MEDS: LISINOPRIL 5 MG TABLET PO SCH (09:04)
[2018-11-15 09:39] VITALS: BP 138/89
[2018-11-15] MEDS: SIMVASTATIN 10 MG TABLET PO SCH (21:06)
[2018-11-16] MEDS: GlipiZIDE 5 MG TABLET PO SCH (06:31)
[2018-11-16] MEDS: MetFORMIN HCL 500 MG TABLET PO SCH (06:32)
[2018-11-16 09:30] VITALS: BP 128/78
[2018-11-16] MEDS: LISINOPRIL 5 MG TABLET PO SCH (09:33)
[2018-11-16] MEDS: OMEPRAZOLE 20 MG CAPSULE PO SCH (09:33)
[2018-11-16] MEDS: METOPROLOL TARTRATE 50 MG TABLET PO SCH (09:33)
[2018-11-16] MEDS: ARIPiprazole 15 MG TABLET PO SCH (09:35)
== END 2018-11-16 15:15 | disposition home or self-care (01) | DRG 750 ==
LOC: EMS 15:00 → 3EI 11-14 00:30
PROVIDERS: ADMIT Psychiatry & Neurology Child & Adolescent Psychiatry; ATTEND Psychiatry & Neurology Child & Adolescent Psychiatry
DX: F20.0 Paranoid schizophrenia (principal); R45.851 Suicidal ideations; E87.1 Hypo-osmolality and hyponatremia; E11.9 Type 2 diabetes mellitus without complications; D72.829 Elevated white blood cell count, unspecified; E78.5 Hyperlipidemia, unspecified; E78.00 Pure hypercholesterolemia, unspecified; F10.10 Alcohol abuse, uncomplicated; I10 Essential (primary) hypertension; K21.9 Gastro-esophageal reflux disease without esophagitis; Y90.9 Presence of alcohol in blood, level not specified; F15.90 Other stimulant use, unspecified, uncomplicated; F17.210 Nicotine dependence, cigarettes, uncomplicated; R45.87 Impulsiveness; Z71.41 Alcohol abuse counseling and surveillance of alcoholic; Z71.51 Drug abuse counseling and surveillance of drug abuser; Z88.0 Allergy status to penicillin
CPT/HCPCS: 83036; 84443; 93005; 96372; 99291; G0480; G0481; J1200; J1630; J2060; Q0162

== ENCOUNTER 2018-12-26 10:47 | Inpatient (IN) | payer MEDICAID, OTHER ==
[~2018-12-26] VITALS: Ht 177.8 cm; Wt 137.0 kg
[2018-12-26] MEDS ORDERED: PERTUSS(ACELL),DIPH,TET VAC/PF 0.5 ML VIAL IM ONE (11:45)
[2018-12-26 12:01] LABS: GLUCOSE,POINT OF CARE 181 MG/DL (70-110)
[2018-12-26] MEDS ORDERED: LORazepam 2 MG/ML VIAL IM ONE (12:15)
[2018-12-26] MEDS ORDERED: DiphenhydrAMINE HCL 50 MG/ML VIAL IM ONE (12:15)
[2018-12-26] MEDS ORDERED: HALOPERIDOL LACTATE 5 MG/ML VIAL IM ONE (12:15)
[2018-12-26 13:15] LABS: BASOPHILS % (AUTO) 0.6 % (0.0-2.0); EOSINOPHILS % (AUTO) 0.8 % (1.0-6.0); HEMOGLOBIN 15.3 g/dL (13.5-17.5); LYMPHOCYTES # (AUTO) 1.8 K/uL (1.0-4.8); LYMPHOCYTES % (AUTO) 13.3 % (22.0-44.0); MEAN CORPUSCULAR VOLUME 94 fL (80-100); MONOCYTES # (AUTO) 0.7 K/uL (0.1-1.0); MONOCYTES % (AUTO) 5.2 % (2.0-9.0); NEUTROPHILS # (AUTO) 10.9 K/uL (1.8-7.7); NEUTROPHILS % (AUTO) 80.1 % (40.0-70.0); PLATELET COUNT (AUTO) 170 K/uL (150-450); RED BLOOD CELL COUNT(AUTO) 4.78 MIL/uL (4.50-5.90); RED CELL DISTRIBUTION WIDTH 14.7 % (11.5-14.5)
[2018-12-26 13:21] LABS: ANION GAP 12 mmol/L (8-16); CALCIUM, TOTAL 9.1 mg/dL (8.8-10.5); CARBON DIOXIDE 25 mmol/L (22-29); CHLORIDE 101 mmol/L (98-107); CREATININE 0.92 mg/dL (0.60-1.30); GLOMERULAR FILTR. RATE CALC > 60 mL/min (>60); GLUCOSE,RANDOM 160 mg/dL (70-110); POTASSIUM 4.3 mmol/L (3.5-5.1); SODIUM SERUM 138 mmol/L (136-145); UREA NITROGEN, BLOOD 11 mg/dL (7-18)
[2018-12-26 13:34] LABS: ALANINE AMINOTRANSFERASE 20 U/L (12-78); ALBUMIN 3.8 g/dL (3.4-5.0); ALKALINE PHOSPHATASE 91 U/L (46-116); ASPARTATE AMINOTRANSFERASE 18 U/L (15-37); BILIRUBIN,TOTAL 0.4 mg/dL (0.1-1.0); TOTAL PROTEIN, SERUM 7.9 g/dL (6.4-8.2)
[2018-12-26 13:39] LABS: PLATELET MORPHOLOGY COMMENT LARGE PLTS PRESENT
[2018-12-26] MEDS ORDERED: ZOLPIDEM TARTRATE 10 MG TABLET PO PRN (14:15)
[2018-12-26] MEDS ORDERED: HALOPERIDOL 5 MG TABLET PO PRN (14:15)
[2018-12-26] MEDS ORDERED: LORazepam 2 MG TABLET PO PRN (14:15)
[2018-12-26] MEDS ORDERED: LOPERAMIDE HCL 2 MG CAPSULE PO PRN (16:30)
[2018-12-26] MEDS ORDERED: DOCUSATE SODIUM 100 MG CAPSULE PO PRN (16:30)
[2018-12-26] MEDS ORDERED: MAGNESIUM HYDROXIDE SUSPENSION 30 ML UDCUP PO PRN (16:30)
[2018-12-26] MEDS ORDERED: MAG HYDROX/AL HYDROX/SIMETH ES 30 ML SUSPENSION UDCUP PO PRN (16:30)
[2018-12-26] MEDS ORDERED: ACETAMINOPHEN 325 MG TABLET PO PRN (16:30)
[2018-12-26] MEDS ORDERED: GuaiFENesin/D-METHORPHAN [SUGAR-FREE] 200-20MG/10 ML SYRUP UDCUP PO PRN (16:30)
[2018-12-26] MEDS ORDERED: PETROLATUM,WHITE 28 GM JELLY TP PRN (16:30)
[2018-12-26] MEDS ORDERED: ALBUTEROL SULFATE HFA 90 MCG/PUFF 8 GM INHALER IH PRN (16:30)
[2018-12-26] MEDS ORDERED: ONDANSETRON HCL 4 MG TABLET PO PRN (16:30)
[2018-12-26] MEDS ORDERED: NICOTINE 14 MG/24 HOUR PATCH TD PRN (16:30)
[2018-12-26] MEDS: MetFORMIN HCL 500 MG TABLET PO SCH (16:53)
[2018-12-27 01:02] VITALS: BP 132/82
[2018-12-27 06:16] LABS: GLUCOMETER DEV NAME(LOC) BV3N.; GLUCOSE,POINT OF CARE 132 MG/DL (70-110)
[2018-12-27] MEDS: GlipiZIDE 5 MG TABLET PO SCH (06:54)
[2018-12-27] MEDS: MetFORMIN HCL 500 MG TABLET PO SCH ×2 (06:54→16:56)
[2018-12-27] MEDS ORDERED: GLUCAGON,HUMAN RECOMBINANT 1 MG VIAL IM PRN (07:30)
[2018-12-27 08:23] LABS: CHOL/HDL RATIO 4.6 (4.2-7.3); THYROID STIMULATING HORMONE 0.94 uIU/mL (0.36-3.74)
[2018-12-27] MEDS: ARIPiprazole 10 MG TABLET PO SCH (09:15)
[2018-12-27] MEDS: SIMVASTATIN 10 MG TABLET PO SCH ×2 (09:16→20:40)
[2018-12-27] MEDS: LISINOPRIL 5 MG TABLET PO SCH (09:16)
[2018-12-27] MEDS: OMEPRAZOLE 20 MG CAPSULE PO SCH (09:17)
[2018-12-27] MEDS: METOPROLOL TARTRATE 50 MG TABLET PO SCH (09:17)
[2018-12-27 16:07] VITALS: BP 142/92
[2018-12-27 16:50] LABS: GLUCOMETER DEV NAME(LOC) BV3N.; GLUCOSE,POINT OF CARE 119 MG/DL (70-110)
[2018-12-28] MEDS: IBUPROFEN 400 MG TABLET PO PRN ×3 (02:49→10:34)
[2018-12-28 02:59] VITALS: BP 136/98
[2018-12-28 06:21] LABS: GLUCOMETER DEV NAME(LOC) BV3N.; GLUCOSE,POINT OF CARE 110 MG/DL (70-110)
[2018-12-28] MEDS: GlipiZIDE 5 MG TABLET PO SCH ×2 (06:21→06:30)
[2018-12-28] MEDS: MetFORMIN HCL 500 MG TABLET PO SCH ×2 (06:21→16:37)
[2018-12-28] MEDS: ARIPiprazole 10 MG TABLET PO SCH (09:44)
[2018-12-28] MEDS: OMEPRAZOLE 20 MG CAPSULE PO SCH (09:45)
[2018-12-28] MEDS: METOPROLOL TARTRATE 50 MG TABLET PO SCH (09:46)
[2018-12-28] MEDS: LISINOPRIL 5 MG TABLET PO SCH (09:46)
[2018-12-28] MEDS ORDERED: ARIPiprazole LAUROXIL,SUBMICR. ER SUSPENSION 675 MG/2.4 ML SYRINGE IM ONE (11:00)
[2018-12-28] MEDS ORDERED: ARIPiprazole LAUROXIL ER SUSPENSION 1064 MG/3.9 ML SYRINGE IM ONE (11:00)
[2018-12-28 11:08] VITALS: BP 129/80
[2018-12-28 11:47] LABS: GLUCOMETER DEV NAME(LOC) BV3N.; GLUCOSE,POINT OF CARE 148 MG/DL (70-110)
[2018-12-28] MEDS: INSULIN LISPRO 100 UNITS/ML SQ PRN (11:51)
[2018-12-28 16:12] VITALS: BP 115/68
[2018-12-28 16:42] LABS: GLUCOMETER DEV NAME(LOC) BV3N.; GLUCOSE,POINT OF CARE 104 MG/DL (70-110)
[2018-12-28] MEDS ORDERED: DiphenhydrAMINE HCL 50 MG/ML VIAL IM ONE (17:00)
[2018-12-28] MEDS: BENZTROPINE MESYLATE 1 MG TABLET PO SCH (17:00)
[2018-12-28] MEDS: SIMVASTATIN 10 MG TABLET PO SCH (20:34)
[2018-12-28 20:51] LABS: GLUCOMETER DEV NAME(LOC) BV3N.; GLUCOSE,POINT OF CARE 101 MG/DL (70-110)
[2018-12-29 02:52] VITALS: BP 124/67
[2018-12-29 06:42] LABS: GLUCOMETER DEV NAME(LOC) BV3N.; GLUCOSE,POINT OF CARE 154 MG/DL (70-110)
[2018-12-29] MEDS: MetFORMIN HCL 500 MG TABLET PO SCH ×2 (07:11→16:19)
[2018-12-29] MEDS: GlipiZIDE 5 MG TABLET PO SCH (07:11)
[2018-12-29] MEDS: INSULIN LISPRO 100 UNITS/ML SQ PRN ×2 (07:13→16:58)
[2018-12-29 08:13] VITALS: BP 139/90
[2018-12-29] MEDS: OMEPRAZOLE 20 MG CAPSULE PO SCH (08:48)
[2018-12-29] MEDS: METOPROLOL TARTRATE 50 MG TABLET PO SCH (08:48)
[2018-12-29] MEDS: LISINOPRIL 5 MG TABLET PO SCH (08:48)
[2018-12-29] MEDS: BENZTROPINE MESYLATE 1 MG TABLET PO SCH ×2 (08:48→16:19)
[2018-12-29] MEDS: PredniSONE 20 MG TABLET PO SCH (08:48)
[2018-12-29 11:46] LABS: GLUCOMETER DEV NAME(LOC) BV3N.; GLUCOSE,POINT OF CARE 99 MG/DL (70-110)
[2018-12-29 16:00] VITALS: BP 140/77
[2018-12-29 19:51] LABS: GLUCOMETER DEV NAME(LOC) BV3N.; GLUCOSE,POINT OF CARE 148 MG/DL (70-110)
[2018-12-29] MEDS: SIMVASTATIN 10 MG TABLET PO SCH (20:07)
[2018-12-29 22:01] LABS: GLUCOMETER DEV NAME(LOC) BV3N.; GLUCOSE,POINT OF CARE 140 MG/DL (70-110)
[2018-12-30 02:25] VITALS: BP 136/80
[2018-12-30 06:26] LABS: GLUCOMETER DEV NAME(LOC) BV3N.; GLUCOSE,POINT OF CARE 100 MG/DL (70-110)
[2018-12-30] MEDS: GlipiZIDE 5 MG TABLET PO SCH (07:20)
[2018-12-30] MEDS: MetFORMIN HCL 500 MG TABLET PO SCH (07:20)
[2018-12-30 08:17] VITALS: BP 140/82
[2018-12-30] MEDS: PredniSONE 20 MG TABLET PO SCH (09:27)
[2018-12-30] MEDS: LISINOPRIL 5 MG TABLET PO SCH (09:28)
[2018-12-30] MEDS: OMEPRAZOLE 20 MG CAPSULE PO SCH (09:28)
[2018-12-30] MEDS: METOPROLOL TARTRATE 50 MG TABLET PO SCH (09:28)
[2018-12-30] MEDS: BENZTROPINE MESYLATE 1 MG TABLET PO SCH (09:29)
[2018-12-30 11:37] LABS: GLUCOMETER DEV NAME(LOC) BV3N.; GLUCOSE,POINT OF CARE 98 MG/DL (70-110)
[2018-12-30] MEDS ORDERED: ARIPiprazole 10 MG TABLET PO ONE (12:30)
[2018-12-30] MEDS ORDERED: PRED20 PO (13:03)
[2018-12-30 16:00] VITALS: BP 125/69
== END 2018-12-30 18:05 | disposition home or self-care (01) | DRG 750 ==
LOC: EMS 11:00 → B3A 21:21
PROVIDERS: ADMIT Psychiatry & Neurology Child & Adolescent Psychiatry; ATTEND Psychiatry & Neurology Child & Adolescent Psychiatry
PROC: 3E0234Z Introduction of Serum, Toxoid and Vaccine into Muscle, Percutaneous Approach (ICD-10-PCS; principal; 2018-12-26)
DX: F20.0 Paranoid schizophrenia (principal); E11.9 Type 2 diabetes mellitus without complications; D72.829 Elevated white blood cell count, unspecified; E78.00 Pure hypercholesterolemia, unspecified; E78.5 Hyperlipidemia, unspecified; F12.90 Cannabis use, unspecified, uncomplicated; I10 Essential (primary) hypertension; K21.9 Gastro-esophageal reflux disease without esophagitis; Z23 Encounter for immunization; Z88.0 Allergy status to penicillin; Z87.891 Personal history of nicotine dependence
CPT/HCPCS: 82948; 84443; 90715; 99291; G0480; J1200; J1630; J2060

== ENCOUNTER 2018-12-28 21:20 | Emergency (ER) | payer MEDICAID, OTHER ==
[~2018-12-28] VITALS: Ht 182.9 cm; Wt 172.7 kg
[2018-12-28 22:16] LABS: GLUCOSE,POINT OF CARE 110 MG/DL (70-110)
[2018-12-28] MEDS ORDERED: PredniSONE 20 MG TABLET PO ONE (22:30)
[2018-12-28] MEDS ORDERED: DiphenhydrAMINE HCL 25 MG CAPSULE PO ONE (22:30)
[2018-12-29 02:25] VITALS: BP 125/78
[2018-12-30] MEDS ORDERED: PRED20 PO (13:03)
== END 2018-12-29 02:36 | disposition home or self-care (01) ==
LOC: EMS 21:20
DX: R22.0 Localized swelling, mass and lump, head (principal); T50.995A Adverse effect of other drugs, medicaments and biological substances, initial encounter; E11.9 Type 2 diabetes mellitus without complications; E78.00 Pure hypercholesterolemia, unspecified; I10 Essential (primary) hypertension; F20.9 Schizophrenia, unspecified; F17.210 Nicotine dependence, cigarettes, uncomplicated; Z88.0 Allergy status to penicillin; Z79.899 Other long term (current) drug therapy; Y92.89 Other specified places as the place of occurrence of the external cause
CPT/HCPCS: 82962; 99283; J7512

== ENCOUNTER 2019-02-07 02:09 | Inpatient (IN) | payer MEDICAID, OTHER ==
[~2019-02-07] VITALS: Ht 185.4 cm; Wt 135.0 kg
[~2019-02-07 02:09] MED LIST changes: +PRED20 PO
[2019-02-07 04:36] LABS: BASOPHILS % (AUTO) 1.1 % (0.0-2.0); EOSINOPHILS % (AUTO) 2.1 % (1.0-6.0); HEMATOCRIT 41.3 % (41-53); HEMOGLOBIN 14.1 g/dL (13.5-17.5); LYMPHOCYTES # (AUTO) 2.6 K/uL (1.0-4.8); LYMPHOCYTES % (AUTO) 17.1 % (22.0-44.0); MEAN CORPUSCULAR HEMOGLOBIN 31.5 pg (26.0-34.0); MEAN CORPUSCULAR VOLUME 93 fL (80-100); MONOCYTES # (AUTO) 1.2 K/uL (0.1-1.0); MONOCYTES % (AUTO) 7.6 % (2.0-9.0); NEUTROPHILS # (AUTO) 11.2 K/uL (1.8-7.7); NEUTROPHILS % (AUTO) 72.1 % (40.0-70.0); PLATELET COUNT (AUTO) 153 K/uL (150-450); RED BLOOD CELL COUNT(AUTO) 4.46 MIL/uL (4.50-5.90); RED CELL DISTRIBUTION WIDTH 13.5 % (11.5-14.5)
[2019-02-07 04:44] LABS: ANION GAP 9 mmol/L (8-16); CALCIUM, TOTAL 8.8 mg/dL (8.8-10.5); CARBON DIOXIDE 26 mmol/L (22-29); CHLORIDE 95 mmol/L (98-107); GLOMERULAR FILTR. RATE CALC > 60 mL/min (>60); GLUCOSE,RANDOM 218 mg/dL (70-110); SODIUM SERUM 130 mmol/L (136-145); UREA NITROGEN, BLOOD 9 mg/dL (7-18)
[2019-02-07 04:51] LABS: ALANINE AMINOTRANSFERASE 39 U/L (12-78); ALBUMIN 3.3 g/dL (3.4-5.0); ALKALINE PHOSPHATASE 120 U/L (46-116); ASPARTATE AMINOTRANSFERASE 72 U/L (15-37); BILIRUBIN,TOTAL 1.1 mg/dL (0.1-1.0); TOTAL PROTEIN, SERUM 7.2 g/dL (6.4-8.2)
[2019-02-07] MEDS ORDERED: ZOLPIDEM TARTRATE 10 MG TABLET PO PRN (05:30)
[2019-02-07] MEDS ORDERED: DiphenhydrAMINE HCL 25 MG CAPSULE PO ONE (05:45)
[2019-02-07] MEDS ORDERED: LORazepam 2 MG TABLET PO ONE (05:45)
[2019-02-07] MEDS ORDERED: ARIPiprazole 15 MG TABLET PO ONE (05:45)
[2019-02-07] MEDS ORDERED: LORazepam 2 MG/ML VIAL IM ONE (06:00)
[2019-02-07] MEDS ORDERED: DiphenhydrAMINE HCL 50 MG/ML VIAL IM ONE (06:00)
[2019-02-07] MEDS ORDERED: HALOPERIDOL LACTATE 5 MG/ML VIAL IM ONE (06:00)
[2019-02-07] MEDS ORDERED: OLANZapine 5 MG TABLET ONE (08:23)
[2019-02-07] MEDS: LORazepam 2 MG TABLET PO PRN (08:25)
[2019-02-07] MEDS ORDERED: OLANZapine 5 MG TABLET PO ONE (08:30)
[2019-02-07 10:24] VITALS: BP 152/89
[2019-02-07 10:34] VITALS: BP 152/89
[2019-02-07 10:39] VITALS: BP 152/89
[2019-02-07] MEDS ORDERED: ALBUTEROL SULFATE HFA 90 MCG/PUFF 8 GM INHALER IH PRN (11:45)
[2019-02-07] MEDS ORDERED: GuaiFENesin/D-METHORPHAN [SUGAR-FREE] 200-20MG/10 ML SYRUP UDCUP PO PRN (11:45)
[2019-02-07] MEDS ORDERED: IBUPROFEN 400 MG TABLET PO PRN (11:45)
[2019-02-07] MEDS ORDERED: DOCUSATE SODIUM 100 MG CAPSULE PO PRN (11:45)
[2019-02-07] MEDS ORDERED: MAGNESIUM HYDROXIDE SUSPENSION 30 ML UDCUP PO PRN (11:45)
[2019-02-07] MEDS ORDERED: ACETAMINOPHEN 325 MG TABLET PO PRN (11:45)
[2019-02-07] MEDS ORDERED: CloNIDine HCL 0.1 MG TABLET PO PRN (11:45)
[2019-02-07] MEDS ORDERED: ONDANSETRON HCL 4 MG TABLET PO PRN (11:45)
[2019-02-07] MEDS ORDERED: LOPERAMIDE HCL 2 MG CAPSULE PO PRN (11:45)
[2019-02-07] MEDS ORDERED: PETROLATUM,WHITE 28 GM JELLY TP PRN (11:45)
[2019-02-07] MEDS ORDERED: NICOTINE 14 MG/24 HOUR PATCH TD PRN (11:45)
[2019-02-07] MEDS: LISINOPRIL 5 MG TABLET PO SCH (14:13)
[2019-02-07] MEDS: METOPROLOL TARTRATE 50 MG TABLET PO SCH (14:13)
[2019-02-07] MEDS: MetFORMIN HCL 500 MG TABLET PO SCH (17:30)
[2019-02-07] MEDS: SIMVASTATIN 10 MG TABLET PO SCH (21:00)
[2019-02-08] MEDS ORDERED: -PHARMACY VACCINE NOTE- MISC ONE (05:15)
[2019-02-08 06:31] LABS: CHOL/HDL RATIO 3.9 (4.2-7.3)
[2019-02-08 06:38] LABS: GLUCOMETER DEV NAME(LOC) 3E.C; GLUCOSE,POINT OF CARE 151 MG/DL (70-110)
[2019-02-08] MEDS: MetFORMIN HCL 500 MG TABLET PO SCH ×2 (06:47→17:39)
[2019-02-08] MEDS: GlipiZIDE 5 MG TABLET PO SCH (06:47)
[2019-02-08] MEDS ORDERED: PredniSONE 20 MG TABLET PO SCH (09:00)
[2019-02-08 09:36] VITALS: BP 122/69
[2019-02-08 09:38] VITALS: BP 122/69
[2019-02-08] MEDS: METOPROLOL TARTRATE 50 MG TABLET PO SCH (10:07)
[2019-02-08] MEDS: ARIPiprazole 10 MG TABLET PO SCH (10:07)
[2019-02-08] MEDS: LISINOPRIL 5 MG TABLET PO SCH (10:07)
[2019-02-08] MEDS: OMEPRAZOLE 20 MG CAPSULE PO SCH (10:08)
[2019-02-08] MEDS: LORazepam 2 MG TABLET PO PRN (10:08)
[2019-02-08] MEDS: SIMVASTATIN 10 MG TABLET PO SCH (20:33)
[2019-02-09 06:44] LABS: GLUCOMETER DEV NAME(LOC) 3E.C; GLUCOSE,POINT OF CARE 167 MG/DL (70-110)
[2019-02-09] MEDS: GlipiZIDE 5 MG TABLET PO SCH (06:56)
[2019-02-09] MEDS: MetFORMIN HCL 500 MG TABLET PO SCH ×2 (06:56→16:58)
[2019-02-09] MEDS: METOPROLOL TARTRATE 50 MG TABLET PO SCH (08:12)
[2019-02-09] MEDS: OMEPRAZOLE 20 MG CAPSULE PO SCH (08:12)
[2019-02-09] MEDS: ARIPiprazole 10 MG TABLET PO SCH (08:12)
[2019-02-09] MEDS: LISINOPRIL 5 MG TABLET PO SCH (08:12)
[2019-02-09] MEDS: LORazepam 2 MG TABLET PO PRN (08:51)
[2019-02-09] MEDS: HALOPERIDOL 5 MG TABLET PO PRN (08:51)
[2019-02-09 09:58] LABS: APPEARANCE,URINE CLEAR (CLEAR); BILIRUBIN,URINE NEGATIVE (NEGATIVE); GLUCOSE, URINE (UA) NEGATIVE (NEGATIVE); KETONES,URINE NEGATIVE (NEGATIVE); LEUKOCYTE ESTERASE ,URINE NEGATIVE (NEGATIVE); NITRATE,URINE NEGATIVE (NEGATIVE); OCCULT BLOOD,URINE NEGATIVE (NEGATIVE); PH,URINE 7.5 (5.0-8.0); PROTEIN,URINE NEGATIVE (NEGATIVE); UROBILINOGEN,URINE 0.2 mg/dL (<=1.0)
[2019-02-09 09:59] VITALS: BP 128/75
[2019-02-09 10:02] LABS: AMPHET/METH SCREEN,URINE NEGATIVE (NEGATIVE); BARBITURATE SCREEN, URINE NEGATIVE (NEGATIVE); BENZODIAZEPINES SCREEN,URINE NEGATIVE (NEGATIVE); CANNABINOID SCREEN,URINE POSITIVE (NEGATIVE); COCAINE SCREEN,URINE NEGATIVE (NEGATIVE); METHADONE SCREEN, URINE NEGATIVE (NEGATIVE); OPIATE SCREEN,URINE NEGATIVE (NEGATIVE)
[2019-02-09 10:05] LABS: PHENCYCLIDINE SCREEN,URINE NEGATIVE (NEGATIVE)
[2019-02-09 16:45] VITALS: BP 122/71
[2019-02-09 17:54] LABS: GLUCOMETER DEV NAME(LOC) 3E.C; GLUCOSE,POINT OF CARE 105 MG/DL (70-110)
[2019-02-09] MEDS: SIMVASTATIN 10 MG TABLET PO SCH (21:00)
[2019-02-10 06:17] LABS: GLUCOMETER DEV NAME(LOC) 3E.C; GLUCOSE,POINT OF CARE 157 MG/DL (70-110)
[2019-02-10] MEDS: GlipiZIDE 5 MG TABLET PO SCH (07:00)
[2019-02-10] MEDS: MetFORMIN HCL 500 MG TABLET PO SCH ×2 (07:00→17:32)
[2019-02-10] MEDS: METOPROLOL TARTRATE 50 MG TABLET PO SCH (08:20)
[2019-02-10] MEDS: ARIPiprazole 10 MG TABLET PO SCH ×2 (08:20→20:41)
[2019-02-10] MEDS: OMEPRAZOLE 20 MG CAPSULE PO SCH (08:20)
[2019-02-10 08:23] VITALS: BP 141/78
[2019-02-10] MEDS: HALOPERIDOL 5 MG TABLET PO PRN (08:23)
[2019-02-10] MEDS: LORazepam 2 MG TABLET PO PRN (08:23)
[2019-02-10] MEDS: LISINOPRIL 5 MG TABLET PO SCH (09:40)
[2019-02-10 17:06] VITALS: BP 134/74
[2019-02-10 17:39] LABS: GLUCOMETER DEV NAME(LOC) 3E.C; GLUCOSE,POINT OF CARE 113 MG/DL (70-110)
[2019-02-10] MEDS: SIMVASTATIN 10 MG TABLET PO SCH (20:41)
[2019-02-10 20:53] LABS: GLUCOMETER DEV NAME(LOC) 3E.C; GLUCOSE,POINT OF CARE 133 MG/DL (70-110)
[2019-02-11 06:26] LABS: GLUCOMETER DEV NAME(LOC) 3E.C; GLUCOSE,POINT OF CARE 160 MG/DL (70-110)
[2019-02-11 06:33] LABS: BASOPHILS % (AUTO) 1.1 % (0.0-2.0); HEMATOCRIT 45.1 % (41-53); LYMPHOCYTES # (AUTO) 2.2 K/uL (1.0-4.8); LYMPHOCYTES % (AUTO) 19.6 % (22.0-44.0); MEAN CORPUSCULAR HEMOGLOBIN 32.2 pg (26.0-34.0); MEAN CORPUSCULAR HGB CONC 33.3 G/dL (31.0-37.0); MEAN CORPUSCULAR VOLUME 97 fL (80-100); MONOCYTES # (AUTO) 0.7 K/uL (0.1-1.0); MONOCYTES % (AUTO) 6.1 % (2.0-9.0); NEUTROPHILS # (AUTO) 7.4 K/uL (1.8-7.7); NEUTROPHILS % (AUTO) 66.2 % (40.0-70.0); PLATELET COUNT (AUTO) 110 K/uL (150-450); RED BLOOD CELL COUNT(AUTO) 4.66 MIL/uL (4.50-5.90); RED CELL DISTRIBUTION WIDTH 14.4 % (11.5-14.5)
[2019-02-11 06:41] LABS: ANION GAP 6 mmol/L (8-16); CALCIUM, TOTAL 8.6 mg/dL (8.8-10.5); CARBON DIOXIDE 29 mmol/L (22-29); CHLORIDE 101 mmol/L (98-107); CREATININE 0.61 mg/dL (0.60-1.30); GLOMERULAR FILTR. RATE CALC > 60 mL/min (>60); GLUCOSE,RANDOM 150 mg/dL (70-110); POTASSIUM 4.6 mmol/L (3.5-5.1); SODIUM SERUM 136 mmol/L (136-145); UREA NITROGEN, BLOOD 10 mg/dL (7-18)
[2019-02-11] MEDS: MetFORMIN HCL 500 MG TABLET PO SCH ×2 (07:01→16:58)
[2019-02-11] MEDS: GlipiZIDE 5 MG TABLET PO SCH (07:01)
[2019-02-11 09:06] VITALS: BP 133/83
[2019-02-11] MEDS: ARIPiprazole 10 MG TABLET PO SCH ×2 (09:17→20:13)
[2019-02-11] MEDS: OMEPRAZOLE 20 MG CAPSULE PO SCH (09:17)
[2019-02-11] MEDS: LISINOPRIL 5 MG TABLET PO SCH (09:18)
[2019-02-11] MEDS: METOPROLOL TARTRATE 50 MG TABLET PO SCH (09:18)
[2019-02-11] MEDS: LORazepam 2 MG TABLET PO PRN (14:10)
[2019-02-11 17:39] LABS: GLUCOMETER DEV NAME(LOC) 3E.C; GLUCOSE,POINT OF CARE 116 MG/DL (70-110)
[2019-02-11 18:34] VITALS: BP 106/68
[2019-02-11] MEDS: SIMVASTATIN 10 MG TABLET PO SCH (20:13)
[2019-02-12] MEDS: MetFORMIN HCL 500 MG TABLET PO SCH ×2 (06:53→17:55)
[2019-02-12] MEDS: GlipiZIDE 5 MG TABLET PO SCH (06:53)
[2019-02-12 07:03] LABS: GLUCOMETER DEV NAME(LOC) 3E.C; GLUCOSE,POINT OF CARE 148 MG/DL (70-110)
[2019-02-12] MEDS: ARIPiprazole 10 MG TABLET PO SCH ×2 (08:14→20:16)
[2019-02-12] MEDS: METOPROLOL TARTRATE 50 MG TABLET PO SCH (08:14)
[2019-02-12] MEDS: OMEPRAZOLE 20 MG CAPSULE PO SCH (08:14)
[2019-02-12] MEDS: LISINOPRIL 5 MG TABLET PO SCH (08:14)
[2019-02-12 08:32] VITALS: BP 133/70
[2019-02-12] MEDS: LORazepam 2 MG TABLET PO PRN (10:22)
[2019-02-12] MEDS: HALOPERIDOL 5 MG TABLET PO PRN (10:22)
[2019-02-12 16:05] VITALS: BP 106/73
[2019-02-12 17:23] LABS: GLUCOMETER DEV NAME(LOC) 3E.C; GLUCOSE,POINT OF CARE 129 MG/DL (70-110)
[2019-02-12] MEDS: SIMVASTATIN 10 MG TABLET PO SCH (20:16)
[2019-02-12] MEDS: MAG HYDROX/AL HYDROX/SIMETH ES 30 ML SUSPENSION UDCUP PO PRN (21:51)
[2019-02-13 06:03] LABS: GLUCOMETER DEV NAME(LOC) 3E.C; GLUCOSE,POINT OF CARE 148 MG/DL (70-110)
[2019-02-13] MEDS: GlipiZIDE 5 MG TABLET PO SCH (07:02)
[2019-02-13] MEDS: MetFORMIN HCL 500 MG TABLET PO SCH ×2 (07:08→17:34)
[2019-02-13 08:56] VITALS: BP 114/84
[2019-02-13] MEDS: ARIPiprazole 10 MG TABLET PO SCH ×2 (08:56→20:20)
[2019-02-13] MEDS: METOPROLOL TARTRATE 50 MG TABLET PO SCH (08:56)
[2019-02-13] MEDS: OMEPRAZOLE 20 MG CAPSULE PO SCH (08:56)
[2019-02-13] MEDS: LISINOPRIL 5 MG TABLET PO SCH (08:56)
[2019-02-13] MEDS: HALOPERIDOL 5 MG TABLET PO PRN (09:44)
[2019-02-13] MEDS: LORazepam 2 MG TABLET PO PRN (09:45)
[2019-02-13 10:16] VITALS: BP 114/84
[2019-02-13 16:05] VITALS: BP 100/60
[2019-02-13 16:50] LABS: GLUCOMETER DEV NAME(LOC) 3E.C; GLUCOSE,POINT OF CARE 96 MG/DL (70-110)
[2019-02-13] MEDS: SIMVASTATIN 10 MG TABLET PO SCH (20:20)
[2019-02-14] MEDS: GlipiZIDE 5 MG TABLET PO SCH (06:33)
[2019-02-14] MEDS: MetFORMIN HCL 500 MG TABLET PO SCH ×2 (06:33→16:55)
[2019-02-14 06:36] LABS: GLUCOMETER DEV NAME(LOC) 3E.C; GLUCOSE,POINT OF CARE 208 MG/DL (70-110)
[2019-02-14 08:00] VITALS: BP 133/76
[2019-02-14] MEDS: OMEPRAZOLE 20 MG CAPSULE PO SCH (09:13)
[2019-02-14] MEDS: METOPROLOL TARTRATE 50 MG TABLET PO SCH (09:14)
[2019-02-14] MEDS: LISINOPRIL 5 MG TABLET PO SCH (09:14)
[2019-02-14] MEDS: ARIPiprazole 10 MG TABLET PO SCH ×2 (09:14→20:14)
[2019-02-14] MEDS ORDERED: ARIPiprazole LAUROXIL ER SUSPENSION 882 MG/3.2 ML SYRINGE IM ONE (10:30)
[2019-02-14 13:43] VITALS: BP 133/76
[2019-02-14 17:00] VITALS: BP 125/77
[2019-02-14 18:03] LABS: GLUCOMETER DEV NAME(LOC) 3E.C; GLUCOSE,POINT OF CARE 95 MG/DL (70-110)
[2019-02-14] MEDS: SIMVASTATIN 10 MG TABLET PO SCH (20:14)
[2019-02-15] MEDS: MAG HYDROX/AL HYDROX/SIMETH ES 30 ML SUSPENSION UDCUP PO PRN (06:47)
[2019-02-15 06:49] LABS: GLUCOMETER DEV NAME(LOC) 3E.C; GLUCOSE,POINT OF CARE 124 MG/DL (70-110)
[2019-02-15] MEDS: GlipiZIDE 5 MG TABLET PO SCH (07:03)
[2019-02-15] MEDS: MetFORMIN HCL 500 MG TABLET PO SCH ×2 (07:04→17:33)
[2019-02-15 08:00] VITALS: BP 142/78
[2019-02-15] MEDS: HALOPERIDOL 5 MG TABLET PO PRN (10:25)
[2019-02-15] MEDS: LISINOPRIL 5 MG TABLET PO SCH (10:25)
[2019-02-15] MEDS: METOPROLOL TARTRATE 50 MG TABLET PO SCH (10:25)
[2019-02-15] MEDS: OMEPRAZOLE 20 MG CAPSULE PO SCH (10:25)
[2019-02-15] MEDS: LORazepam 2 MG TABLET PO PRN (10:25)
[2019-02-15 17:34] LABS: GLUCOMETER DEV NAME(LOC) 3E.C; GLUCOSE,POINT OF CARE 142 MG/DL (70-110)
[2019-02-15] MEDS: SIMVASTATIN 10 MG TABLET PO SCH (20:08)
[2019-02-15] MEDS: ARIPiprazole 10 MG TABLET PO SCH (20:08)
[2019-02-15 21:52] VITALS: BP 112/85
[2019-02-16 06:06] LABS: GLUCOMETER DEV NAME(LOC) 3E.C; GLUCOSE,POINT OF CARE 133 MG/DL (70-110)
[2019-02-16] MEDS: MetFORMIN HCL 500 MG TABLET PO SCH (07:01)
[2019-02-16] MEDS: GlipiZIDE 5 MG TABLET PO SCH (07:01)
[2019-02-16] MEDS: LISINOPRIL 5 MG TABLET PO SCH (08:44)
[2019-02-16] MEDS: OMEPRAZOLE 20 MG CAPSULE PO SCH (08:44)
[2019-02-16] MEDS: METOPROLOL TARTRATE 50 MG TABLET PO SCH (08:45)
[2019-02-16 09:15] VITALS: BP 163/92
[2019-02-16] MEDS ORDERED: ARIP882S IM (10:10)
== END 2019-02-16 10:40 | disposition home or self-care (01) | DRG 750 ==
LOC: EMS 02:10 → 3EC 08:26
PROVIDERS: ADMIT Psychiatry & Neurology Child & Adolescent Psychiatry; ATTEND Psychiatry & Neurology Child & Adolescent Psychiatry
DX: F20.0 Paranoid schizophrenia (principal); R45.851 Suicidal ideations; E11.65 Type 2 diabetes mellitus with hyperglycemia; D72.829 Elevated white blood cell count, unspecified; E87.1 Hypo-osmolality and hyponatremia; E78.5 Hyperlipidemia, unspecified; K21.9 Gastro-esophageal reflux disease without esophagitis; I10 Essential (primary) hypertension; E78.00 Pure hypercholesterolemia, unspecified; K59.00 Constipation, unspecified; F15.90 Other stimulant use, unspecified, uncomplicated; F94.0 Selective mutism; Z91.5 Personal history of self-harm; F41.9 Anxiety disorder, unspecified
CPT/HCPCS: 80307; G0480; J1200; J1630; J2060

== ENCOUNTER 2019-03-06 00:58 | Inpatient (IN) | payer MEDICAID, OTHER ==
[~2019-03-06] VITALS: Ht 170.2 cm; Wt 137.9 kg
[~2019-03-06 00:58] MED LIST changes: -ARIP15TA2 PO; +ARIP882S IM; -PRED20 PO
[2019-03-06 01:29] LABS: GLUCOSE,POINT OF CARE 184 MG/DL (70-110)
[2019-03-06 01:42] LABS: AMPHET/METH SCREEN,URINE NEGATIVE (NEGATIVE); BARBITURATE SCREEN, URINE NEGATIVE (NEGATIVE); BENZODIAZEPINES SCREEN,URINE NEGATIVE (NEGATIVE); CANNABINOID SCREEN,URINE POSITIVE (NEGATIVE); COCAINE SCREEN,URINE NEGATIVE (NEGATIVE); METHADONE SCREEN, URINE NEGATIVE (NEGATIVE); OPIATE SCREEN,URINE NEGATIVE (NEGATIVE); PHENCYCLIDINE SCREEN,URINE NEGATIVE (NEGATIVE)
[2019-03-06] MEDS ORDERED: RANI150T7 PO (01:47)
[2019-03-06] MEDS ORDERED: RISP1 PO (01:47)
[2019-03-06 01:52] LABS: BASOPHILS % (AUTO) 0.5 % (0.0-2.0); EOSINOPHILS % (AUTO) 3.2 % (1.0-6.0); HEMATOCRIT 41.5 % (41-53); HEMOGLOBIN 13.8 g/dL (13.5-17.5); LYMPHOCYTES # (AUTO) 2.2 K/uL (1.0-4.8); LYMPHOCYTES % (AUTO) 17.5 % (22.0-44.0); MEAN CORPUSCULAR HEMOGLOBIN 31.8 pg (26.0-34.0); MEAN CORPUSCULAR HGB CONC 33.4 G/dL (31.0-37.0); MEAN CORPUSCULAR VOLUME 95 fL (80-100); MONOCYTES % (AUTO) 7.7 % (2.0-9.0); NEUTROPHILS # (AUTO) 8.8 K/uL (1.8-7.7); NEUTROPHILS % (AUTO) 71.1 % (40.0-70.0); PLATELET COUNT (AUTO) 143 K/uL (150-450); RED BLOOD CELL COUNT(AUTO) 4.36 MIL/uL (4.50-5.90); RED CELL DISTRIBUTION WIDTH 14.5 % (11.5-14.5)
[2019-03-06 02:06] LABS: ANION GAP 10 mmol/L (8-16); CALCIUM, TOTAL 8.4 mg/dL (8.8-10.5); CARBON DIOXIDE 26 mmol/L (22-29); CHLORIDE 96 mmol/L (98-107); CREATININE 0.81 mg/dL (0.60-1.30); GLOMERULAR FILTR. RATE CALC > 60 mL/min (>60); GLUCOSE,RANDOM 163 mg/dL (70-110); POTASSIUM 3.4 mmol/L (3.5-5.1); SODIUM SERUM 132 mmol/L (136-145); UREA NITROGEN, BLOOD 9 mg/dL (7-18)
[2019-03-06 02:12] LABS: PLATELET MORPHOLOGY COMMENT GIANT PLTS PRESENT
[2019-03-06 02:14] LABS: ALANINE AMINOTRANSFERASE 42 U/L (12-78); ALBUMIN 3.5 g/dL (3.4-5.0); ALKALINE PHOSPHATASE 118 U/L (46-116); ASPARTATE AMINOTRANSFERASE 41 U/L (15-37); BILIRUBIN,TOTAL 0.9 mg/dL (0.1-1.0); TOTAL PROTEIN, SERUM 7.5 g/dL (6.4-8.2)
[2019-03-06] MEDS ORDERED: HALOPERIDOL LACTATE 5 MG/ML VIAL IM ONE (02:15)
[2019-03-06] MEDS ORDERED: LORazepam 2 MG/ML VIAL IM ONE ×2 (02:15→05:30)
[2019-03-06] MEDS ORDERED: DiphenhydrAMINE HCL 50 MG/ML VIAL IM ONE (02:15)
[2019-03-06 02:16] LABS: ACETAMINOPHEN < 2 mcg/mL (10-30)
[2019-03-06 02:26] LABS: SALICYLATE 3.5 mg/dL (2.8-20.0)
[2019-03-06] MEDS ORDERED: ZOLPIDEM TARTRATE 10 MG TABLET PO PRN (13:00)
[2019-03-06] MEDS ORDERED: HALOPERIDOL 5 MG TABLET PO PRN (13:00)
[2019-03-06] MEDS ORDERED: LORazepam 2 MG TABLET PO PRN (13:00)
[2019-03-06 17:15] VITALS: BP 108/63
[2019-03-06] MEDS ORDERED: INFLUENZA VIRUS VACCINE QVS 2019-20 (3YR+)/PF 60 MCG/0.5 ML SYRINGE IM ONE (17:15)
[2019-03-06] MEDS ORDERED: -PHARMACY VACCINE NOTE- MISC ONE (17:15)
[2019-03-06 17:59] LABS: GLUCOMETER DEV NAME(LOC) BV3N.; GLUCOSE,POINT OF CARE 135 MG/DL (70-110)
[2019-03-06] MEDS: SIMVASTATIN 10 MG TABLET PO SCH (20:59)
[2019-03-07] MEDS: GlipiZIDE 5 MG TABLET PO SCH (06:37)
[2019-03-07 06:43] VITALS: BP 125/77
[2019-03-07] MEDS ORDERED: POTASSIUM CHLORIDE 20 MEQ ER TABLET PO ONE (08:00)
[2019-03-07 08:02] LABS: CHOL/HDL RATIO 5.1 (4.2-7.3); FREE T4 (FREE THYROXINE) 1.14 ng/dL (0.76-1.46); THYROID STIMULATING HORMONE 0.92 uIU/mL (0.36-3.74)
[2019-03-07] MEDS: METOPROLOL TARTRATE 50 MG TABLET PO SCH (08:35)
[2019-03-07] MEDS: LISINOPRIL 5 MG TABLET PO SCH (08:35)
[2019-03-07 16:10] VITALS: BP 123/71
[2019-03-07] MEDS: SIMVASTATIN 10 MG TABLET PO SCH (20:50)
[2019-03-08 06:21] VITALS: BP 121/70
[2019-03-08] MEDS: GlipiZIDE 5 MG TABLET PO SCH (06:26)
[2019-03-08 08:13] VITALS: BP 140/86
[2019-03-08] MEDS: ARIPiprazole 10 MG TABLET PO SCH (08:21)
[2019-03-08] MEDS: BENZTROPINE MESYLATE 1 MG TABLET PO SCH ×2 (08:21→16:35)
[2019-03-08] MEDS: METOPROLOL TARTRATE 50 MG TABLET PO SCH (08:23)
[2019-03-08] MEDS: LISINOPRIL 5 MG TABLET PO SCH (08:23)
[2019-03-08 16:07] VITALS: BP 127/72
[2019-03-08] MEDS: SIMVASTATIN 10 MG TABLET PO SCH (20:47)
[2019-03-09 04:38] VITALS: BP 117/80
[2019-03-09] MEDS: GlipiZIDE 5 MG TABLET PO SCH (06:45)
[2019-03-09 08:03] VITALS: BP 135/73
[2019-03-09] MEDS: METOPROLOL TARTRATE 50 MG TABLET PO SCH (08:08)
[2019-03-09] MEDS: BENZTROPINE MESYLATE 1 MG TABLET PO SCH (08:09)
[2019-03-09] MEDS: ARIPiprazole 10 MG TABLET PO SCH (08:09)
[2019-03-09] MEDS: LISINOPRIL 5 MG TABLET PO SCH (08:14)
[2019-03-09 09:16] LABS: ANION GAP 5 mmol/L (8-16); CALCIUM, TOTAL 8.3 mg/dL (8.8-10.5); CARBON DIOXIDE 30 mmol/L (22-29); CHLORIDE 104 mmol/L (98-107); CREATININE 0.82 mg/dL (0.60-1.30); GLOMERULAR FILTR. RATE CALC > 60 mL/min (>60); GLUCOSE,RANDOM 124 mg/dL (70-110); POTASSIUM 3.9 mmol/L (3.5-5.1); SODIUM SERUM 139 mmol/L (136-145); UREA NITROGEN, BLOOD 8 mg/dL (7-18)
== END 2019-03-09 13:25 | disposition home or self-care (01) | DRG 750 ==
LOC: EMS 01:00 → B3A 14:05
PROVIDERS: ADMIT Psychiatry & Neurology Psychiatry; ATTEND Psychiatry & Neurology Child & Adolescent Psychiatry
DX: F20.9 Schizophrenia, unspecified (principal); R45.851 Suicidal ideations; E11.9 Type 2 diabetes mellitus without complications; Z68.42 Body mass index [BMI] 45.0-49.9, adult; D72.829 Elevated white blood cell count, unspecified; E78.00 Pure hypercholesterolemia, unspecified; E78.5 Hyperlipidemia, unspecified; E66.9 Obesity, unspecified; F12.90 Cannabis use, unspecified, uncomplicated; F41.9 Anxiety disorder, unspecified; G47.00 Insomnia, unspecified; I10 Essential (primary) hypertension; K21.9 Gastro-esophageal reflux disease without esophagitis; F17.210 Nicotine dependence, cigarettes, uncomplicated; Z56.0 Unemployment, unspecified; Z88.0 Allergy status to penicillin
CPT/HCPCS: 84439; 84443; 87081; 93005; 96372; 99291; G0480; G0481; J1200; J1630; J2060

== ENCOUNTER 2019-05-22 08:55 | Emergency (ER) | payer MEDICAID, OTHER ==
[~2019-05-22] VITALS: Ht 167.6 cm; Wt 136.4 kg
[~2019-05-22 08:55] MED LIST changes: -ARIP882S IM; -METF-960 PO; -OMEP20 PO; +RANI150T7 PO; +RISP1 PO
[2019-05-22 09:18] LABS: GLUCOSE,POINT OF CARE 192 MG/DL (70-110)
[2019-05-22 09:50] VITALS: BP 129/86
[2019-05-22] MEDS ORDERED: IBUPROFEN 600 MG TABLET PO ONE (10:00)
== END 2019-05-22 10:22 | disposition home or self-care (01) ==
LOC: EMS 08:58
DX: S76.012A Strain of muscle, fascia and tendon of left hip, initial encounter (principal); M70.62 Trochanteric bursitis, left hip; E11.9 Type 2 diabetes mellitus without complications; E78.00 Pure hypercholesterolemia, unspecified; I10 Essential (primary) hypertension; F20.9 Schizophrenia, unspecified; F17.210 Nicotine dependence, cigarettes, uncomplicated; Z88.0 Allergy status to penicillin; Z79.899 Other long term (current) drug therapy; X50.9XXA Other and unspecified overexertion or strenuous movements or postures, initial encounter; Y93.89 Activity, other specified; Y92.89 Other specified places as the place of occurrence of the external cause; Y99.8 Other external cause status

== ENCOUNTER 2019-07-16 17:05 | Emergency (ER) | payer OTHER ==
[~2019-07-16] VITALS: Ht 190.5 cm; Wt 140.9 kg
[2019-07-16 19:08] VITALS: BP 146/91
== END 2019-07-16 19:11 | disposition home or self-care (01) ==
LOC: EMS 17:08
DX: F20.9 Schizophrenia, unspecified (principal); F17.210 Nicotine dependence, cigarettes, uncomplicated; E11.9 Type 2 diabetes mellitus without complications; E78.00 Pure hypercholesterolemia, unspecified; I10 Essential (primary) hypertension; Z88.0 Allergy status to penicillin; Z79.84 Long term (current) use of oral hypoglycemic drugs

== ENCOUNTER 2019-08-22 17:51 | Emergency (ER) | payer OTHER ==
[~2019-08-22] VITALS: Ht 180.3 cm; Wt 159.1 kg
[2019-08-22] MEDS ORDERED: ARIP2 PO (17:57)
[2019-08-22] MEDS ORDERED: EPINEPHrine 1:1,000 [1 MG/ML] AMP IM ONE (18:15)
[2019-08-22] MEDS ORDERED: DiphenhydrAMINE HCL 50 MG/ML VIAL IM ONE (18:15)
[2019-08-22] MEDS ORDERED: DEXAMETHASONE SOD PHOS 4 MG/ML 5 ML VIAL IM ONE (18:15)
[2019-08-22] MEDS ORDERED: FAMOTIDINE 20 MG TABLET PO ONE (18:15)
[2019-08-22] MEDS ORDERED: DiphenhydrAMINE HCL 50 MG/ML VIAL IVP ONE (21:15)
[2019-08-22] MEDS ORDERED: FAMOTIDINE 10 MG/ML 2 ML VIAL IVP ONE (21:15)
[2019-08-22 23:11] VITALS: BP 123/72
== END 2019-08-22 23:11 | disposition left against medical advice (07) ==
LOC: EMS 17:51
DX: T78.2XXA Anaphylactic shock, unspecified, initial encounter (principal); I10 Essential (primary) hypertension; E78.00 Pure hypercholesterolemia, unspecified; E11.9 Type 2 diabetes mellitus without complications; F20.9 Schizophrenia, unspecified; F17.210 Nicotine dependence, cigarettes, uncomplicated; Z88.0 Allergy status to penicillin; Z88.6 Allergy status to analgesic agent; Z79.899 Other long term (current) drug therapy
CPT/HCPCS: 96372; 96374; 96375; 99285; J0171; J1100; J1200; J3490

== ENCOUNTER 2020-01-24 12:32 | Emergency (ER) | payer OTHER ==
[~2020-01-24] VITALS: Ht 160 cm; Wt 300.0 kg
[~2020-01-24 12:32] MED LIST changes: +ARIP2 PO; -RANI150T7 PO; -RISP1 PO
[2020-01-24 12:42] VITALS: BP 137/88
== END 2020-01-24 15:28 | disposition home or self-care (01) ==
LOC: EMS 12:49
DX: M25.561 Pain in right knee (principal); M25.572 Pain in left ankle and joints of left foot; F20.9 Schizophrenia, unspecified; E11.9 Type 2 diabetes mellitus without complications; E78.00 Pure hypercholesterolemia, unspecified; I10 Essential (primary) hypertension; F17.210 Nicotine dependence, cigarettes, uncomplicated; X50.9XXA Other and unspecified overexertion or strenuous movements or postures, initial encounter; Y93.89 Activity, other specified; Y92.89 Other specified places as the place of occurrence of the external cause; Y99.8 Other external cause status
CPT/HCPCS: 29505; 73562-TC; 73610-TC; Z7502

== ENCOUNTER 2020-03-02 08:13 | Inpatient (IN) | payer MEDICAID, OTHER ==
[2020-03-02 08:47] LABS: BASOPHILS % (AUTO) 0.5 % (0.0-2.0); HEMOGLOBIN 15.2 g/dL (13.5-17.5); LYMPHOCYTES % (AUTO) 16.6 % (22.0-44.0); MEAN CORPUSCULAR HEMOGLOBIN 30.4 pg (26.0-34.0); MEAN CORPUSCULAR HGB CONC 33.1 G/dL (31.0-37.0); MEAN CORPUSCULAR VOLUME 92 fL (80-100); MONOCYTES # (AUTO) 0.8 K/uL (0.1-1.0); MONOCYTES % (AUTO) 6.3 % (2.0-9.0); NEUTROPHILS # (AUTO) 8.8 K/uL (1.8-7.7); NEUTROPHILS % (AUTO) 72.6 % (40.0-70.0); PLATELET COUNT (AUTO) 165 K/uL (150-450); RED CELL DISTRIBUTION WIDTH 15.9 % (11.5-14.5)
[2020-03-02 08:53] LABS: ANION GAP 9 mmol/L (8-16); CALCIUM, TOTAL 8.5 mg/dL (8.8-10.5); CARBON DIOXIDE 27 mmol/L (22-29); CHLORIDE 100 mmol/L (98-107); CREATININE 0.84 mg/dL (0.60-1.30); GLOMERULAR FILTR. RATE CALC > 60 mL/min (>60); GLUCOSE,RANDOM 145 mg/dL (70-110); POTASSIUM 4.1 mmol/L (3.5-5.1); SODIUM SERUM 136 mmol/L (136-145); UREA NITROGEN, BLOOD 7 mg/dL (7-18)
[2020-03-02 08:59] LABS: ALANINE AMINOTRANSFERASE 43 U/L (12-78); ALBUMIN 3.5 g/dL (3.4-5.0); ALKALINE PHOSPHATASE 124 U/L (46-116); ASPARTATE AMINOTRANSFERASE 30 U/L (15-37); BILIRUBIN,TOTAL 0.7 mg/dL (0.1-1.0); TOTAL PROTEIN, SERUM 7.9 g/dL (6.4-8.2)
[2020-03-02] MEDS ORDERED: LORazepam 2 MG TABLET PO ONE (09:15)
[2020-03-02] MEDS ORDERED: HALOPERIDOL 5 MG TABLET PO ONE (09:15)
[2020-03-02] MEDS ORDERED: HALOPERIDOL 5 MG TABLET PO PRN (10:15)
[2020-03-02] MEDS ORDERED: ZOLPIDEM TARTRATE 10 MG TABLET PO PRN (10:15)
[2020-03-02] MEDS ORDERED: LORazepam 2 MG TABLET PO PRN (10:15)
[2020-03-02 13:40] LABS: COVID AG,FIA SOURCE NASOPHARYNGEAL
[2020-03-02 17:52] VITALS: BP 130/69
[2020-03-03 01:40] VITALS: BP 122/87
[2020-03-03] MEDS ORDERED: NICOTINE 14 MG/24 HOUR PATCH TD PRN (07:45)
[2020-03-03] MEDS ORDERED: ONDANSETRON HCL 4 MG TABLET PO PRN (07:45)
[2020-03-03] MEDS ORDERED: PETROLATUM,WHITE 28 GM JELLY TP PRN (07:45)
[2020-03-03] MEDS ORDERED: LOPERAMIDE HCL 2 MG CAPSULE PO PRN (07:45)
[2020-03-03] MEDS ORDERED: DOCUSATE SODIUM 100 MG CAPSULE PO PRN (07:45)
[2020-03-03] MEDS ORDERED: MAGNESIUM HYDROXIDE SUSPENSION 30 ML UDCUP PO PRN (07:45)
[2020-03-03] MEDS ORDERED: GuaiFENesin/D-METHORPHAN [SUGAR-FREE] 200-20MG/10 ML SYRUP UDCUP PO PRN (07:45)
[2020-03-03] MEDS ORDERED: MAG HYDROX/AL HYDROX/SIMETH ES 30 ML SUSPENSION UDCUP PO PRN (07:45)
[2020-03-03] MEDS ORDERED: ACETAMINOPHEN 325 MG TABLET PO PRN (07:45)
[2020-03-03] MEDS ORDERED: CloNIDine HCL 0.1 MG TABLET PO PRN (07:45)
[2020-03-03] MEDS ORDERED: ALBUTEROL SULFATE HFA 90 MCG/PUFF 8 GM INHALER IH PRN (07:45)
[2020-03-03] MEDS: ARIPiprazole 10 MG TABLET PO SCH ×2 (12:50→16:36)
[2020-03-03] MEDS ORDERED: GLUCAGON,HUMAN RECOMBINANT 1 MG VIAL IM PRN (15:45)
[2020-03-03 16:14] VITALS: BP 146/84
[2020-03-03] MEDS: INSULIN LISPRO 100 UNITS/ML SQ PRN ×2 (16:47→21:46)
[2020-03-03 16:54] LABS: GLUCOMETER DEV NAME(LOC) BV3N.; GLUCOSE,POINT OF CARE 144 MG/DL (70-110)
[2020-03-03 21:53] LABS: GLUCOMETER DEV NAME(LOC) BV3N.; GLUCOSE,POINT OF CARE 161 MG/DL (70-110)
[2020-03-04 06:01] VITALS: BP 150/69
[2020-03-04] MEDS: GlipiZIDE 5 MG TABLET PO SCH (06:11)
[2020-03-04 06:16] LABS: GLUCOMETER DEV NAME(LOC) BV3N.; GLUCOSE,POINT OF CARE 134 MG/DL (70-110)
[2020-03-04 08:32] VITALS: BP 126/80
[2020-03-04] MEDS: LISINOPRIL 5 MG TABLET PO SCH (08:33)
[2020-03-04] MEDS: METOPROLOL TARTRATE 50 MG TABLET PO SCH (08:33)
[2020-03-04] MEDS: ARIPiprazole 10 MG TABLET PO SCH ×2 (08:33→16:29)
[2020-03-04 16:36] LABS: GLUCOMETER DEV NAME(LOC) BV3N.; GLUCOSE,POINT OF CARE 163 MG/DL (70-110)
[2020-03-04] MEDS: INSULIN LISPRO 100 UNITS/ML SQ PRN (17:08)
[2020-03-04 20:00] VITALS: BP 114/77
[2020-03-05] MEDS: GlipiZIDE 5 MG TABLET PO SCH (06:14)
[2020-03-05 06:21] VITALS: BP 125/87
[2020-03-05 06:31] LABS: GLUCOMETER DEV NAME(LOC) BV3N.; GLUCOSE,POINT OF CARE 132 MG/DL (70-110)
[2020-03-05 07:48] LABS: HEMOGLOBIN A1C 7.3 % (3.8-5.6); MAGNESIUM 1.9 mg/dL (1.80-2.40); PHOSPHORUS 3.4 mg/dL (2.5-4.9)
[2020-03-05 08:03] VITALS: BP 117/79
[2020-03-05] MEDS: LISINOPRIL 5 MG TABLET PO SCH (08:46)
[2020-03-05] MEDS: MULTIVITAMINS WITH MINERALS, THERAPEUTIC TABLET PO SCH (08:46)
[2020-03-05] MEDS: ARIPiprazole 10 MG TABLET PO SCH (08:46)
[2020-03-05] MEDS: METOPROLOL TARTRATE 50 MG TABLET PO SCH (08:46)
[2020-03-05] MEDS: THIAMINE 100 MG TABLET PO SCH (08:46)
[2020-03-05] MEDS ORDERED: ARIPiprazole LAUROXIL,SUBMICR. ER SUSPENSION 675 MG/2.4 ML SYRINGE IM ONE (09:00)
[2020-03-05] MEDS ORDERED: ARIPiprazole LAUROXIL ER SUSPENSION 882 MG/3.2 ML SYRINGE IM SCH (09:00)
[2020-03-05 16:12] VITALS: BP 137/83
[2020-03-06 05:32] VITALS: BP 129/76
[2020-03-06 06:07] LABS: GLUCOMETER DEV NAME(LOC) BV3N.; GLUCOSE,POINT OF CARE 178 MG/DL (70-110)
[2020-03-06] MEDS: GlipiZIDE 5 MG TABLET PO SCH (06:13)
[2020-03-06] MEDS: INSULIN LISPRO 100 UNITS/ML SQ PRN (06:19)
[2020-03-06] MEDS ORDERED: ARIP882S IM (08:20)
[2020-03-06 08:23] VITALS: BP 129/90
[2020-03-06] MEDS: MULTIVITAMINS WITH MINERALS, THERAPEUTIC TABLET PO SCH (08:28)
[2020-03-06] MEDS: LISINOPRIL 5 MG TABLET PO SCH (08:28)
[2020-03-06] MEDS: METOPROLOL TARTRATE 50 MG TABLET PO SCH (08:28)
[2020-03-06] MEDS: THIAMINE 100 MG TABLET PO SCH (08:28)
[2020-03-06 11:28] LABS: GLUCOMETER DEV NAME(LOC) BV3N.; GLUCOSE,POINT OF CARE 131 MG/DL (70-110)
== END 2020-03-06 13:15 | disposition home or self-care (01) | DRG 750 ==
LOC: EMS 08:13 → B3A 14:52
PROVIDERS: ADMIT Psychiatry & Neurology Child & Adolescent Psychiatry; ATTEND Psychiatry & Neurology Child & Adolescent Psychiatry
DX: F20.9 Schizophrenia, unspecified (principal); R45.851 Suicidal ideations; Z91.19 Patient's noncompliance with other medical treatment and regimen; F41.9 Anxiety disorder, unspecified; I10 Essential (primary) hypertension; E78.5 Hyperlipidemia, unspecified; K21.9 Gastro-esophageal reflux disease without esophagitis; E11.9 Type 2 diabetes mellitus without complications; Z88.0 Allergy status to penicillin; Z88.8 Allergy status to other drugs, medicaments and biological substances; D72.829 Elevated white blood cell count, unspecified; E78.00 Pure hypercholesterolemia, unspecified; F17.210 Nicotine dependence, cigarettes, uncomplicated; Z91.14 Patient's other noncompliance with medication regimen; Z20.828 Contact with and (suspected) exposure to other viral communicable diseases
CPT/HCPCS: 83036; 83735; 84100; 87426; G0480

== ENCOUNTER 2020-07-01 07:21 | Inpatient (IN) | payer MEDICAID, OTHER ==
[~2020-07-01] VITALS: Ht 177.8 cm; Wt 134.9 kg
[~2020-07-01 07:21] MED LIST changes: -ARIP2 PO; +ARIP882S IM; -LISI-660 PO; +LISI-892 PO; -SIMV-259 PO
[2020-07-01] MEDS ORDERED: PERTUSS(ACELL),DIPH,TET VAC/PF 0.5 ML SYRINGE IM ONE (08:00)
[2020-07-01] MEDS ORDERED: LIDOCAINE 1% 10 ML VIAL ID ONE (08:00)
[2020-07-01 08:43] LABS: BASOPHILS % (AUTO) 0.7 % (0.0-2.0); EOSINOPHILS % (AUTO) 2.5 % (1.0-6.0); HEMATOCRIT 42.3 % (41-53); HEMOGLOBIN 14.2 g/dL (13.5-17.5); LYMPHOCYTES # (AUTO) 1.7 K/uL (1.0-4.8); LYMPHOCYTES % (AUTO) 15.2 % (22.0-44.0); MEAN CORPUSCULAR HEMOGLOBIN 31.6 pg (26.0-34.0); MEAN CORPUSCULAR HGB CONC 33.4 G/dL (31.0-37.0); MEAN CORPUSCULAR VOLUME 95 fL (80-100); MONOCYTES # (AUTO) 0.5 K/uL (0.1-1.0); MONOCYTES % (AUTO) 4.7 % (2.0-9.0); NEUTROPHILS # (AUTO) 8.5 K/uL (1.8-7.7); NEUTROPHILS % (AUTO) 76.9 % (40.0-70.0); PLATELET COUNT (AUTO) 151 K/uL (150-450); RED BLOOD CELL COUNT(AUTO) 4.48 MIL/uL (4.50-5.90); RED CELL DISTRIBUTION WIDTH 14.7 % (11.5-14.5)
[2020-07-01] MEDS ORDERED: HALOPERIDOL LACTATE 5 MG/ML VIAL IM ONE (08:45)
[2020-07-01] MEDS ORDERED: DiphenhydrAMINE HCL 50 MG/ML VIAL IM ONE (08:45)
[2020-07-01] MEDS ORDERED: HALOPERIDOL 5 MG TABLET PO ONE (08:45)
[2020-07-01] MEDS ORDERED: LORazepam 2 MG/ML VIAL IVP ONE (08:45)
[2020-07-01] MEDS ORDERED: LORazepam 2 MG/ML VIAL IM ONE (08:45)
[2020-07-01] MEDS ORDERED: DiphenhydrAMINE HCL 25 MG CAPSULE PO ONE (08:45)
[2020-07-01 08:50] LABS: ANION GAP 10 mmol/L (8-16); CALCIUM, TOTAL 8.5 mg/dL (8.8-10.5); CARBON DIOXIDE 26 mmol/L (22-29); CHLORIDE 102 mmol/L (98-107); CREATININE 0.78 mg/dL (0.60-1.30); GLOMERULAR FILTR. RATE CALC > 60 mL/min (>60); GLUCOSE,RANDOM 190 mg/dL (70-110); POTASSIUM 3.8 mmol/L (3.5-5.1); SODIUM SERUM 138 mmol/L (136-145); UREA NITROGEN, BLOOD 5 mg/dL (7-18)
[2020-07-01 08:56] LABS: ALANINE AMINOTRANSFERASE 31 U/L (12-78); ALBUMIN 3.1 g/dL (3.4-5.0); ALKALINE PHOSPHATASE 97 U/L (46-116); ASPARTATE AMINOTRANSFERASE 19 U/L (15-37); BILIRUBIN,TOTAL 0.4 mg/dL (0.1-1.0); TOTAL PROTEIN, SERUM 7.1 g/dL (6.4-8.2)
[2020-07-01] MEDS ORDERED: LORazepam 2 MG TABLET PO PRN (13:30)
[2020-07-01] MEDS ORDERED: HALOPERIDOL 5 MG TABLET PO PRN (13:30)
[2020-07-01] MEDS ORDERED: ACETAMINOPHEN 325 MG TABLET PO PRN (13:45)
[2020-07-01 14:15] LABS: COVID AG,FIA SOURCE NASAL SWAB
[2020-07-01] MEDS ORDERED: ZOLPIDEM TARTRATE 10 MG TABLET PO PRN (18:15)
[2020-07-01 19:24] VITALS: BP 146/95
[2020-07-01] MEDS ORDERED: -PHARMACY VACCINE NOTE- MISC ONE (19:45)
[2020-07-02] MEDS: GlipiZIDE 5 MG TABLET PO SCH (06:34)
[2020-07-02] MEDS ORDERED: NICOTINE 14 MG/24 HOUR PATCH TD PRN (07:45)
[2020-07-02] MEDS ORDERED: MAG HYDROX/AL HYDROX/SIMETH ES 30 ML SUSPENSION UDCUP PO PRN (07:45)
[2020-07-02] MEDS ORDERED: GuaiFENesin/D-METHORPHAN [SUGAR-FREE] 200-20MG/10 ML SYRUP UDCUP PO PRN (07:45)
[2020-07-02] MEDS ORDERED: MAGNESIUM HYDROXIDE SUSPENSION 30 ML UDCUP PO PRN (07:45)
[2020-07-02] MEDS ORDERED: DOCUSATE SODIUM 100 MG CAPSULE PO PRN (07:45)
[2020-07-02] MEDS ORDERED: ACETAMINOPHEN 325 MG TABLET PO PRN (07:45)
[2020-07-02] MEDS ORDERED: LOPERAMIDE HCL 2 MG CAPSULE PO PRN (07:45)
[2020-07-02] MEDS ORDERED: CloNIDine HCL 0.1 MG TABLET PO PRN (07:45)
[2020-07-02] MEDS ORDERED: ALBUTEROL SULFATE HFA 90 MCG/PUFF 8 GM INHALER IH PRN (07:45)
[2020-07-02] MEDS ORDERED: PETROLATUM,WHITE 28 GM JELLY TP PRN (07:45)
[2020-07-02] MEDS ORDERED: ONDANSETRON HCL 4 MG TABLET PO PRN (07:45)
[2020-07-02 08:28] VITALS: BP 114/55
[2020-07-02] MEDS: LISINOPRIL 5 MG TABLET PO SCH (09:00)
[2020-07-02] MEDS: METOPROLOL TARTRATE 50 MG TABLET PO SCH (09:00)
[2020-07-02] MEDS: BACITRACIN 28 GM OINTMENT TP SCH ×3 (09:00→16:11)
[2020-07-02] MEDS: ARIPiprazole 10 MG TABLET PO SCH (14:01)
[2020-07-02 16:01] VITALS: BP 127/90
[2020-07-03] MEDS: GlipiZIDE 5 MG TABLET PO SCH (06:44)
[2020-07-03 08:00] VITALS: BP 136/100
[2020-07-03] MEDS: MULTIVITAMINS, THERAPEUTIC TABLET PO SCH (10:05)
[2020-07-03] MEDS: LORazepam 2 MG TABLET PO PRN (10:05)
[2020-07-03] MEDS: ARIPiprazole 10 MG TABLET PO SCH (10:05)
[2020-07-03] MEDS: BACITRACIN 28 GM OINTMENT TP SCH ×2 (10:05→16:01)
[2020-07-03] MEDS: HALOPERIDOL 5 MG TABLET PO PRN (10:05)
[2020-07-03] MEDS: LISINOPRIL 5 MG TABLET PO SCH (10:05)
[2020-07-03] MEDS: METOPROLOL TARTRATE 50 MG TABLET PO SCH (10:05)
[2020-07-03 16:23] VITALS: BP 113/68
[2020-07-03 17:52] LABS: GLUCOMETER DEV NAME(LOC) 3E.C; GLUCOSE,POINT OF CARE 126 MG/DL (70-110)
[2020-07-04] MEDS: GlipiZIDE 5 MG TABLET PO SCH (07:01)
[2020-07-04 07:12] LABS: GLUCOMETER DEV NAME(LOC) 3E.C; GLUCOSE,POINT OF CARE 168 MG/DL (70-110)
[2020-07-04 08:00] VITALS: BP 138/83
[2020-07-04] MEDS: LORazepam 2 MG TABLET PO PRN (08:38)
[2020-07-04] MEDS: MULTIVITAMINS, THERAPEUTIC TABLET PO SCH (08:38)
[2020-07-04] MEDS: BACITRACIN 28 GM OINTMENT TP SCH ×2 (08:38→16:16)
[2020-07-04] MEDS: METOPROLOL TARTRATE 50 MG TABLET PO SCH (08:38)
[2020-07-04] MEDS: ARIPiprazole 10 MG TABLET PO SCH (08:38)
[2020-07-04] MEDS: HALOPERIDOL 5 MG TABLET PO PRN (08:38)
[2020-07-04] MEDS: LISINOPRIL 5 MG TABLET PO SCH (08:38)
[2020-07-04 16:17] VITALS: BP 111/69
[2020-07-04 16:56] LABS: GLUCOMETER DEV NAME(LOC) 3E.C; GLUCOSE,POINT OF CARE 130 MG/DL (70-110)
[2020-07-05 06:35] LABS: GLUCOMETER DEV NAME(LOC) 3E.C; GLUCOSE,POINT OF CARE 157 MG/DL (70-110)
[2020-07-05] MEDS: GlipiZIDE 5 MG TABLET PO SCH (06:56)
[2020-07-05 08:36] VITALS: BP 139/88
[2020-07-05] MEDS: ARIPiprazole 10 MG TABLET PO SCH (10:09)
[2020-07-05] MEDS: MULTIVITAMINS, THERAPEUTIC TABLET PO SCH (10:09)
[2020-07-05] MEDS: HALOPERIDOL 5 MG TABLET PO PRN (10:09)
[2020-07-05] MEDS: LISINOPRIL 5 MG TABLET PO SCH (10:10)
[2020-07-05] MEDS: METOPROLOL TARTRATE 50 MG TABLET PO SCH (10:10)
[2020-07-05] MEDS: BACITRACIN 28 GM OINTMENT TP SCH (10:11)
[2020-07-05] MEDS ORDERED: ARIP10TA8 PO (12:59)
== END 2020-07-05 15:45 | disposition home or self-care (01) | DRG 750 ==
LOC: EMS 07:21 → 3EC 19:03
DX: F20.0 Paranoid schizophrenia (principal); Z68.41 Body mass index [BMI] 40.0-44.9, adult; E11.9 Type 2 diabetes mellitus without complications; Z88.0 Allergy status to penicillin; Z88.6 Allergy status to analgesic agent; Z88.8 Allergy status to other drugs, medicaments and biological substances; E78.00 Pure hypercholesterolemia, unspecified; I10 Essential (primary) hypertension; F17.210 Nicotine dependence, cigarettes, uncomplicated; S61.422A Laceration with foreign body of left hand, initial encounter; X58.XXXA Exposure to other specified factors, initial encounter; Y93.89 Activity, other specified; Y92.89 Other specified places as the place of occurrence of the external cause; Y99.8 Other external cause status; E78.5 Hyperlipidemia, unspecified; E66.9 Obesity, unspecified; Z20.822 Contact with and (suspected) exposure to COVID-19; Z79.899 Other long term (current) drug therapy
CPT/HCPCS: 84443; 87426; 90715; 99285; G0480; J1200; J1630; J2060; J3490

== ENCOUNTER 2020-07-25 07:12 | Inpatient (IN) | payer MEDICAID, OTHER ==
[~2020-07-25] VITALS: Ht 177.8 cm; Wt 175.0 kg
[~2020-07-25 07:12] MED LIST changes: +ARIP10TA38 PO; -ARIP882S IM
[2020-07-25] MEDS ORDERED: DiphenhydrAMINE HCL 50 MG/ML VIAL IM ONE (07:45)
[2020-07-25] MEDS ORDERED: LORazepam 2 MG/ML VIAL IM ONE (07:45)
[2020-07-25] MEDS ORDERED: HALOPERIDOL LACTATE 5 MG/ML VIAL IM ONE (07:45)
[2020-07-25 08:15] LABS: BASOPHILS % (AUTO) 0.8 % (0.0-2.0); EOSINOPHILS % (AUTO) 3.1 % (1.0-6.0); HEMATOCRIT 42.5 % (41-53); HEMOGLOBIN 14.2 g/dL (13.5-17.5); LYMPHOCYTES % (AUTO) 21.6 % (22.0-44.0); MEAN CORPUSCULAR HEMOGLOBIN 31.6 pg (26.0-34.0); MEAN CORPUSCULAR HGB CONC 33.4 G/dL (31.0-37.0); MEAN CORPUSCULAR VOLUME 94 fL (80-100); MONOCYTES # (AUTO) 0.4 K/uL (0.1-1.0); MONOCYTES % (AUTO) 4.5 % (2.0-9.0); NEUTROPHILS # (AUTO) 6.6 K/uL (1.8-7.7); PLATELET COUNT (AUTO) 185 K/uL (150-450); RED BLOOD CELL COUNT(AUTO) 4.51 MIL/uL (4.50-5.90)
[2020-07-25 08:23] LABS: ANION GAP 10 mmol/L (8-16); CALCIUM, TOTAL 8.9 mg/dL (8.8-10.5); CARBON DIOXIDE 27 mmol/L (22-29); CHLORIDE 100 mmol/L (98-107); CREATININE 0.87 mg/dL (0.60-1.30); GLOMERULAR FILTR. RATE CALC > 60 mL/min (>60); GLUCOSE,RANDOM 159 mg/dL (70-110); POTASSIUM 3.8 mmol/L (3.5-5.1); SODIUM SERUM 137 mmol/L (136-145); UREA NITROGEN, BLOOD 13 mg/dL (7-18)
[2020-07-25 08:28] LABS: ALANINE AMINOTRANSFERASE 41 U/L (12-78); ALBUMIN 3.8 g/dL (3.4-5.0); ALKALINE PHOSPHATASE 98 U/L (46-116); ASPARTATE AMINOTRANSFERASE 26 U/L (15-37); BILIRUBIN,TOTAL 0.4 mg/dL (0.1-1.0); TOTAL PROTEIN, SERUM 7.7 g/dL (6.4-8.2)
[2020-07-25 08:34] LABS: COVID AG,FIA SOURCE NASOPHARYNGEAL
[2020-07-25] MEDS ORDERED: HALOPERIDOL 5 MG TABLET PO PRN (09:30)
[2020-07-25] MEDS ORDERED: LORazepam 2 MG TABLET PO PRN (09:30)
[2020-07-25] MEDS ORDERED: ZOLPIDEM TARTRATE 10 MG TABLET PO PRN (09:30)
[2020-07-25 13:13] LABS: GLUCOMETER DEV NAME(LOC) BV3N.; GLUCOSE,POINT OF CARE 96 MG/DL (70-110)
[2020-07-25 13:41] VITALS: BP 132/82
[2020-07-25 16:25] VITALS: BP 136/66
[2020-07-25 16:37] LABS: GLUCOMETER DEV NAME(LOC) BV3N.; GLUCOSE,POINT OF CARE 100 MG/DL (70-110)
[2020-07-26] MEDS: GlipiZIDE 5 MG TABLET PO SCH (06:33)
[2020-07-26 06:40] VITALS: BP 103/51
[2020-07-26] MEDS ORDERED: PETROLATUM,WHITE 28 GM JELLY TP PRN (08:15)
[2020-07-26] MEDS ORDERED: ALBUTEROL SULFATE HFA 90 MCG/PUFF 8 GM INHALER IH PRN (08:15)
[2020-07-26] MEDS ORDERED: GuaiFENesin/D-METHORPHAN [SUGAR-FREE] 200-20MG/10 ML SYRUP UDCUP PO PRN (08:15)
[2020-07-26] MEDS ORDERED: MAGNESIUM HYDROXIDE SUSPENSION 30 ML UDCUP PO PRN (08:15)
[2020-07-26] MEDS ORDERED: ONDANSETRON HCL 4 MG TABLET PO PRN (08:15)
[2020-07-26] MEDS ORDERED: LOPERAMIDE HCL 2 MG CAPSULE PO PRN (08:15)
[2020-07-26] MEDS ORDERED: MAG HYDROX/AL HYDROX/SIMETH ES 30 ML SUSPENSION UDCUP PO PRN (08:15)
[2020-07-26] MEDS ORDERED: NICOTINE 14 MG/24 HOUR PATCH TD PRN (08:15)
[2020-07-26] MEDS ORDERED: DOCUSATE SODIUM 100 MG CAPSULE PO PRN (08:15)
[2020-07-26] MEDS ORDERED: ACETAMINOPHEN 325 MG TABLET PO PRN (08:15)
[2020-07-26] MEDS ORDERED: CloNIDine HCL 0.1 MG TABLET PO PRN (08:15)
[2020-07-26 08:24] VITALS: BP 124/74
[2020-07-26] MEDS: ARIPiprazole 10 MG TABLET PO SCH (08:50)
[2020-07-26] MEDS: LISINOPRIL 5 MG TABLET PO SCH (08:50)
[2020-07-26] MEDS: METOPROLOL TARTRATE 50 MG TABLET PO SCH (13:05)
[2020-07-26 16:20] VITALS: BP 121/70
[2020-07-27 06:09] VITALS: BP 119/68
[2020-07-27 06:30] LABS: GLUCOMETER DEV NAME(LOC) BV3N.; GLUCOSE,POINT OF CARE 143 MG/DL (70-110)
[2020-07-27] MEDS: GlipiZIDE 5 MG TABLET PO SCH (06:30)
[2020-07-27] MEDS: ARIPiprazole 10 MG TABLET PO SCH (08:17)
[2020-07-27] MEDS: METOPROLOL TARTRATE 50 MG TABLET PO SCH (08:17)
[2020-07-27] MEDS: LISINOPRIL 5 MG TABLET PO SCH (08:17)
[2020-07-27 08:27] VITALS: BP 133/79
[2020-07-27] MEDS ORDERED: ARIPiprazole LAUROXIL ER SUSPENSION 1064 MG/3.9 ML SYRINGE IM SCH (09:00)
[2020-07-27 16:18] VITALS: BP 110/70
[2020-07-27 17:23] LABS: GLUCOMETER DEV NAME(LOC) BV3N.; GLUCOSE,POINT OF CARE 105 MG/DL (70-110)
[2020-07-28 04:51] VITALS: BP 121/72
[2020-07-28 06:29] LABS: GLUCOMETER DEV NAME(LOC) BV3N.; GLUCOSE,POINT OF CARE 129 MG/DL (70-110)
[2020-07-28] MEDS: GlipiZIDE 5 MG TABLET PO SCH (06:33)
[2020-07-28] MEDS: ARIPiprazole 10 MG TABLET PO SCH (08:23)
[2020-07-28] MEDS: METOPROLOL TARTRATE 50 MG TABLET PO SCH (08:24)
[2020-07-28] MEDS: LISINOPRIL 5 MG TABLET PO SCH (08:24)
[2020-07-28 08:43] VITALS: BP 126/76
[2020-07-28] MEDS ORDERED: ARIP1064 IM (09:39)
== END 2020-07-28 13:50 | disposition home or self-care (01) | DRG 750 ==
LOC: EMS 07:16 → B3A 10:23
DX: F20.0 Paranoid schizophrenia (principal); E11.9 Type 2 diabetes mellitus without complications; R45.851 Suicidal ideations; I10 Essential (primary) hypertension; E66.9 Obesity, unspecified; E78.00 Pure hypercholesterolemia, unspecified; E78.5 Hyperlipidemia, unspecified; Z20.822 Contact with and (suspected) exposure to COVID-19; Z79.899 Other long term (current) drug therapy; Z87.891 Personal history of nicotine dependence
CPT/HCPCS: 80053; 82962; 85025; 87081; 87426; 99291; A9575; G0480; J1200; J1630; J2060